=== PATIENT | male | born 1935 | race Caucasian/White ===

== ENCOUNTER 2021-11-15 11:14 | Emergency (ER) | payer MEDICARE, OTHER, SELFPAY ==
[2021-11-15] VITALS (13 sets, daily range): BP systolic 124–211; BP diastolic 60–89; PULSE 34–42; RESP 14–18; TEMP 37.2; O2SAT 93–99; BMI 23.2
--- NOTE | 2021-11-15 12:58 | ED_ITS ---
HPI - Dizziness General Chief Complaint: Dizziness/Vertigo Stated Complaint: Lightheaded want bp checked Time Seen by Provider: 11/15/21 11:15 History of Present Illness HPI Narrative: This 85-year-old male comes in reporting dizziness over the past couple weeks. He states that he is not feeling right. He clarifies dizziness to mean lightheadedness episodes. He denies having any vertigo. There is some off balance feeling with episodes of lightheadedness as would be expected. Does not report any chest pain. He arrives with elevated blood pressure which is also part of his concern. He was thinking that this is causing his lightheadedness. It is also noted that his heart rate is 40 beats per minute. He states that he noted that his heart rate was at 35 last evening. He is not on any beta-mouna or other rate-controlling medication. He states that there was some discussion in the past about the possibility of a pacemaker but this was decided against by his caregivers. He states that his heart rate was in the 60s around that time but now for the past few weeks apparently he has much slower heart rate. Related Data Home Medications Medication Instructions Recorded Confirmed amlodipine 5 mg tablet mg 11/15/21 furosemide 40 mg tablet mg 11/15/21 metoprolol tartrate 25 mg tablet mg 11/15/21 tamsulosin 0.4 mg capsule mg PO 11/15/21 Allergies Allergy/AdvReac Type Severity Reaction Status Date / Time No Known Drug Allergies Allergy Verified 11/15/21 12:05 Review of Systems Status of ROS: Reports: 10 or more systems reviewed and unremarkable except as noted in History and below Narrative: Constitutional: No fevers, no weight gain or loss. Generalized fatigue. Eyes: No discharge. No vision changes. HENT: No congestion, no sore throat, no ear pain. Cardiovascular: No chest pain, no palpitations. Respiratory: No shortness of breath, no wheezes, no cough. Gastrointestinal: No abdominal pain, no vomiting, no diarrhea. Genitourinary: No dysuria, no hematuria. Musculoskeletal: Normal range of motion. Skin: No rashes, no pruritis. Neurological: No weakness, sensory change, speech change. Lightheadedness episodes. Endo/Heme/Allergies: No bruising or bleeding. No polydipsia. Pysch: no suicidality, no anxiety, no insomnia. All other systems reviewed and are negative. PFSH PFSH Social History Smoking Status: Former smoker How often do you have a drink containing alcohol: never AUDIT-C Alcohol total score: 0 Non-prescribed substance use: denies use Exam Narrative: Exam Narrative: Constitutional: Well-developed, well-nourished, no acute distress. HEENT: Normocephalic, atraumatic. Neck: Normal range of motion. Nontender. Supple. Heart: Regular. No murmurs. Bradycardia. Intact distal pulses. Lungs: Clear to auscultation. No chest discomfort. No wheezes, rhonchi, or rales. Abdomen: Normal bowel sounds. Nontender. No rebound tenderness. Genitalia: Deferred. Back: No midline tenderness. Normal range of motion. Extremities: Normal range of motion. No injury. Skin: Intact. No rash. Warm. No erythema or pallor. Neurologic: No altered sensation. No weakness. Alert and oriented. Psychiatric: No suicidality. No anxiety or depression. No insomnia. Nursing notes and vitals signs are reviewed. Const: Vital Signs, click to edit/add: Vital Signs - 24 hr 11/15/21 11:49 11/15/21 12:20 11/15/21 12:30 Temperature 98.9 F Pulse Rate [Right Pulse Oximeter] 42 L 41 L 37 L Respiratory Rate 14 16 16 Blood Pressure [Ri ght Upper Arm] 196/65 H 196/64 H 182/63 H Pulse Oximetry 97 96 96 Oxygen Delivery Me thod Room Air Room Air Room Air 11/15/21 14:00 11/15/21 16:49 Temperature Pulse Rate [Right Pulse Oximeter] 37 L 42 L Respiratory Rate 16 18 Blood Pressure [Ri ght Upper Arm] 187/65 H 124/74 Pulse Oximetry 93 98 Oxygen Delivery Me thod Room Air Room Air Course Vital Signs Vital signs: Initial Vital Signs Temperature 98.9 F 11/15/21 11:49 Temperature Source Temporal Artery Scan 11/15/21 11:49 Pulse Rate 42 L 11/15/21 11:49 Respiratory Rate 14 11/15/21 11:49 Blood Pressure 196/65 H 11/15/21 11:49 Blood Pressure Mean 108 11/15/21 11:49 Blood Pressure Position Sitting 11/15/21 11:49 Pulse Oximetry 97 11/15/21 11:49 Oxygen Delivery Method 11/15/21 11:49 Vital Signs Temperature 98.9 F 11/15/21 11:49 Pulse Rate 42 L 11/15/21 11:49 Respiratory Rate 14 11/15/21 11:49 Blood Pressure 196/65 H 11/15/21 11:49 Pulse Oximetry 97 11/15/21 11:49 Oxygen Delivery Method 11/15/21 11:49 Temperature 98.9 F 11/15/21 11:49 Pulse Rate 42 L 11/15/21 16:49 Respiratory Rate 18 11/15/21 16:49 Blood Pressure 124/74 11/15/21 16:49 Pulse Oximetry 98 11/15/21 16:49 Oxygen Delivery Method 11/15/21 16:49 MDM - Dizziness MDM Narrative Medical decision making narrative: This 85-year-old male comes in reporting fatigue and lightheadedness over the last couple weeks. He arrives with a heart rate at around 40 beats per minute with sufficient and even elevated blood pressure. He states that he noticed his heart rate was in the range of 35 beats per minute last evening. EKG shows sinus rhythm with second-degree AV block in a 2-1 AV conduction ratio. While at rest the patient is feeling okay and is stable. He does see a quality assurance intern and has an appointment in a couple weeks. He was uncertain as to whether he was taking a beta-mouna. His medication list that he carried on him showed no evidence of beta blockade. However his record here shows that he was prescribed metoprolol tartrate 25 mg b.i.d. on September 21, almost 2 months ago. This may have been stopped by his quality assurance intern. In any event it is unclear whether he is taking a beta-mouna. Lab results returned with an elevated B type natriuretic peptide at around 9100. His troponin is in normal range. Other lab results also are reassuring. I did speak with the quality assurance intern on-call, Dr. Billy, who works with the quality assurance intern that this patient's ease. He recommended admission but there were no beds available for transfer to [facility]. I did speak with the hospitalist here, Dr. Bobby, agreed to take him in to further assessed for any advancing heart block. It was noted that the patient did get up to ambulate to the bathroom and his heart rate increased to 48 at the time. This exertional increase is somewhat reassuring despite the need for a pacer at some point. Lab Data Labs: Lab Results 11/15/21 11/15/21 11/15/21 Range/Units 13:10 13:10 13:10 WBC 9.32 (4.50-11.00) K/uL RBC 4.18 L (4.30-5.90) m/uL Hgb 13.0 L (13.5-17.5) gm/dL Hct 39.9 (37.0-53.0) % MCV 96 (80-100) fL MCH 31 (26-34) pg MCHC 33 (32-36) gm/dL RDW Coeff of [place] 14.6 (11.5-15.5) % Plt Count 183 (140-440) K/uL Neut % (Auto) 79.6 H (42.0-72.0) % Lymph % (Auto) 11.6 L (20-44) % [place] % (Auto) 6.5 (0.0-11.0) % Eos % (Auto) 1.9 (0.0-7.0) % Baso % (Auto) 0.3 (0.0-3.0) % Neut # (Auto) 7.40 H (1.7-7.0) K/uL Lymph # (Auto) 1.10 (0.90-2.90) K/uL [place] # (Auto) 0.60 (0.00-0.90) K/UL Eos # (Auto) 0.18 (0.00-0.50) K/uL Baso # (Auto) 0.03 (0.00-0.30) K/uL Abs Immat Gran (auto) 0.01 (0.00-0.30) K/uL INR 1.02 (0.91-1.10) Sodium 143 (135-149) mmol/L Potassium 4.6 (3.6-5.1) mmol/L Chloride 111 (96-114) mmol/L Carbon Dioxide 21 (20-32) mmol/L BUN 41 H (7-30) mg/dL Creatinine 1.7 H (0.5-1.5) mg/dL Estimated Creat Clear 26.12 Estimated GFR 39 ml/min Glucose 106 (60-115) mg/dL Calcium 8.8 (8.4-10.6) mg/dL Magnesium 2.4 (1.5-2.6) mg/dL Troponin I 0.04 (0.01-0.04) ng/mL NT-Pro-B Natriuret Pep 9100 H (0-450) PG/mL TSH (0.270-4.20) uIU/mL SARS-CoV-2 (PCR) (Negative) 11/15/21 11/15/21 Range/Units 13:10 13:42 WBC (4.50-11.00) K/uL RBC (4.30-5.90) m/uL Hgb (13.5-17.5) gm/dL Hct (37.0-53.0) % MCV (80-100) fL MCH (26-34) pg MCHC (32-36) gm/dL RDW Coeff of [place] (11.5-15.5) % Plt Count (140-440) K/uL Neut % (Auto) (42.0-72.0) % Lymph % (Auto) (20-44) % [place] % (Auto) (0.0-11.0) % Eos % (Auto) (0.0-7.0) % Baso % (Auto) (0.0-3.0) % Neut # (Auto) (1.7-7.0) K/uL Lymph # (Auto) (0.90-2.90) K/uL [place] # (Auto) (0.00-0.90) K/UL Eos # (Auto) (0.00-0.50) K/uL Baso # (Auto) (0.00-0.30) K/uL Abs Immat Gran (auto) (0.00-0.30) K/uL INR (0.91-1.10) Sodium (135-149) mmol/L Potassium (3.6-5.1) mmol/L Chloride (96-114) mmol/L Carbon Dioxide (20-32) mmol/L BUN (7-30) mg/dL Creatinine (0.5-1.5) mg/dL Estimated Creat Clear Estimated GFR ml/min Glucose (60-115) mg/dL Calcium (8.4-10.6) mg/dL Magnesium (1.5-2.6) mg/dL Troponin I (0.01-0.04) ng/mL NT-Pro-B Natriuret Pep (0-450) PG/mL TSH 2.260 (0.270-4.20) uIU/mL SARS-CoV-2 (PCR) Negative SARS-CoV-2 (Negative) ECG Data Attestation: I personally reviewed and interpreted this ECG as follows: Interpretation: Sinus rhythm with second-degree AV block and a 2-1 conduction. Rate is 38 beats per minute. There are no specific ST or T-wave abnormalities. Discharge Plan Discharge Clinical Impression: AV heart block Patient Disposition: Admitted As Inpatient Condition: Unchanged Prescriptions: No Action furosemide 40 mg tablet amlodipine 5 mg tablet tamsulosin 0.4 mg capsule PO metoprolol tartrate 25 mg tablet Follow Up/Referrals: Louis Smith MD [Primary Care Provider] -
[2021-11-15 13:19] LABS: Basophils Absolute Auto 0.03 K/uL (0.00-0.30); Basophils Percent Auto 0.3 % (0.0-3.0); Eosinophils Absolute Auto 0.18 K/uL (0.00-0.50); Eosinophils Percent Auto 1.9 % (0.0-7.0); Hematocrit 39.9 % (37.0-53.0); Immature Granulocytes Abs Auto 0.01 K/uL (0.00-0.30); Lymphocytes Percent Auto 11.6 % (20-44); Mean Corpuscular HGB Conc 33 gm/dL (32-36); Mean Corpuscular Hemoglobin 31 pg (26-34); Mean Corpuscular Volume 96 fL (80-100); Monocytes Percent Auto 6.5 % (0.0-11.0); Neutrophils Percent Auto 79.6 % (42.0-72.0); Platelet Count* 183 K/uL (140-440); RDW Coefficient of Variation % 14.6 % (11.5-15.5); Red Blood Count 4.18 m/uL (4.30-5.90); White Blood Count* 9.32 K/uL (4.50-11.00)
--- NOTE | 2021-11-15 13:21 | ED.NURSE ---
ed trop instead of ed poc trop ok per dr green, lab notified and will change order and run
[2021-11-15 13:22] LABS: Slide Review Reflex No
[2021-11-15 13:44] LABS: Chloride* 111 mmol/L (96-114); Potassium* 4.6 mmol/L (3.6-5.1); Sodium* 143 mmol/L (135-149)
--- NOTE | 2021-11-15 13:44 | ED.NURSE ---
pt alert, denies pain, HR alarms below 35, Dr. Pollard updated.
[2021-11-15 13:46] LABS: Creatinine* 1.7 mg/dL (0.5-1.5); Est. Creatinine Clearance* 26.12; Estimated Glomerular Filt Rate 39 ml/min
[2021-11-15 13:47] LABS: Blood Urea Nitrogen* 41 mg/dL (7-30); Calcium* 8.8 mg/dL (8.4-10.6); Carbon Dioxide* 21 mmol/L (20-32); Glucose* 106 mg/dL (60-115); Magnesium* 2.4 mg/dL (1.5-2.6)
[2021-11-15 13:54] LABS: INR 1.02 (0.91-1.10); Prothrombin Time 13.8 Seconds
[2021-11-15 13:56] LABS: NT Pro B Type NatriureticPept* 9100 PG/mL (0-450)
[2021-11-15 14:00] LABS: Troponin I* 0.04 ng/mL (0.01-0.04)
[2021-11-15 15:00] LABS: SARS PCR* Negative SARS-CoV-2 (Negative)
--- NOTE | 2021-11-15 16:13 | ED.NURSE ---
Patient had a drop in heart rate to 30. notified. Dr. Pollard has spoken to [facility]. [place] stated that there were no beds available at this time. Will continue to work on disposition.
--- NOTE | 2021-11-15 21:00 | ED.NURSE ---
report to [facility], pt transported out via stretcher to [place]. awaiting N2N report to [place].
--- NOTE | 2021-11-15 21:32 | ED.NURSE ---
report to RN at [place].
--- NOTE | 2021-11-16 06:08 | ED.NURSE ---
Pt's daughter called and asked for update. 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 Updated daughter that pt transferred to [place] last evening. Offered to look up phone number for her, but she refused. She stated she would call them.
== END 2021-11-15 21:33 | disposition admitted as inpatient to this hospital (09) ==
PROVIDERS: Emergency Provider Emergency Medicine Emergency Medical Services; PCP Family Medicine
DX: I44.30 Unspecified atrioventricular block (principal)
CPT/HCPCS: 36415; 80048; 83735; 83880; 84443; 84484; 85025; 85610; 87635; 93005; 99285; 99291

== ENCOUNTER 2021-11-15 20:53 | Outpatient (CLI) | payer MEDICARE, OTHER, SELFPAY | END 2021-11-15 20:54 | disposition home or self-care (01) | LOC: AMB 11-25 16:35 | PROVIDERS: PCP Family Medicine; Visit Provider Emergency Medicine Emergency Medical Services | DX: R42 Dizziness and giddiness (principal); I10 Essential (primary) hypertension | CPT/HCPCS: A0425; A0426 ==

== ENCOUNTER 2022-06-29 07:55 | Outpatient (CLI) | payer MEDICARE, OTHER, SELFPAY ==
--- NOTE | 2022-06-29 08:15 | CRLHL7_ITS ---
For Patients: As a result of the Century Cures Act, medical imaging exams and procedure reports are released immediately into your electronic medical record. You may view this report before your referring provider. If you have questions, please contact your health care provider. INDICATION: Belching. Gastrointestinal reflux disease. TECHNIQUE: Single contrast upper GI. FINDINGS: The manager database administration image demonstrates a right-sided pacemaker with its lead tips in the right atrium and right ventricle. Sternotomy. Cardiac bypass. Transcatheter aortic valve replacement. Surgical clips right upper quadrant. Essentially normal esophagus without stricture, mass, or obstruction. No significant presbyesophagus. Few tertiary contractions toward the end of the examination. No hiatal hernia. Reflux could not be elicited in the upright or recumbent/decubitus positions. No sliding type esophageal hiatal hernia was identified. The stomach and duodenum are grossly unremarkable. These findings were discussed in detail with the patient and the patient`s daughter who was present for the examination. 3 minutes 22 seconds fluoroscopy time utilized. IMPRESSION: Essentially normal upper GI. Dictated by Tristan Erickson MD @ 06/29/2022 11:13:19 AM (Electronically Signed)
== END 2022-06-29 07:56 | disposition home or self-care (01) ==
PROVIDERS: PCP Family Medicine; Visit Provider Internal Medicine Gastroenterology
DX: K21.9 Gastro-esophageal reflux disease without esophagitis (principal)
CPT/HCPCS: 74240

== ENCOUNTER 2023-08-31 13:30 | Outpatient (CLI) | payer MEDICARE, OTHER, SELFPAY | END 2023-08-31 13:31 | disposition home or self-care (01) | LOC: AMB 09-04 00:52 | PROVIDERS: PCP Family Medicine; Visit Provider Family Medicine | DX: R06.09 Other forms of dyspnea (principal) | CPT/HCPCS: A0425; A0427 ==

== ENCOUNTER 2023-08-31 14:15 | Emergency (ER) | payer MEDICARE, OTHER, SELFPAY ==
[2023-08-31] VITALS (13 sets, daily range): BP systolic 155–171; BP diastolic 59–128; PULSE 59–75; RESP 12–28; TEMP 35.8; O2SAT 90–97
[2023-08-31] MEDS: ALBUTEROL SULFATE 2.5 MG/3 ML VIAL.NEB NEB (15:04)
[2023-08-31] MEDS: FUROSEMIDE 10 MG/ML inj 80 MG IVP ×2 (15:04→18:01)
[2023-08-31] MEDS: NITROGLYCERIN 0.4 MG TAB.SUBL SUBLINGUAL ×2 (15:04→18:33)
[2023-08-31 15:07] LABS: ABG PCO2 45 mmHG (35-45); Base Excess ABG -1.8 mmol/L (-3.0-3.0); Carboxyhemoglobin* 1.9 % (0.0-5.0); HCO3 ABG 24 mmol/L (21-28); Lactate* 0.6 mmol/L (0.5-1.9); Oxygen Saturation ABG 94 % (92-100); PO2 ABG 68.3 mmHG (80-105); TCO2 ABG 22 mmol/l (21-30); pH ABG 7.34 (7.35-7.45)
--- NOTE | 2023-08-31 15:13 | CRLHL7_ITS ---
For Patients: As a result of the Century Cures Act, medical imaging exams and procedure reports are released immediately into your electronic medical record. You may view this report before your referring provider. If you have questions, please contact your health care provider. INDICATION: Shortness of breath. COMPARISON: None. TECHNIQUE: Portable AP chest. FINDINGS: Mild cardiomegaly. Small bilateral pleural effusions. Evidence of pulmonary congestion. IMPRESSION: CHF with bilateral pleural effusion. Dictated by Eduardo Valenzuela MD @ 08/31/2023 4:07:41 PM (Electronically Signed)
[2023-08-31 15:21] LABS: Basophils Percent Auto 0.3 % (0.0-3.0); Hematocrit 39.8 % (37.0-53.0); Hemoglobin* 12.9 gm/dL (13.5-17.5); Immature Granulocytes Pct Auto 1.4 %; Lymphocytes Percent Auto 3.4 % (20-44); Mean Corpuscular HGB Conc 32 gm/dL (32-36); Mean Corpuscular Hemoglobin 31 pg (26-34); Mean Corpuscular Volume 96 fL (80-100); Monocytes Percent Auto 5.6 % (0.0-11.0); Neutrophils Percent Auto 87.3 % (42.0-72.0); Platelet Count* 209 K/uL (140-440); RDW Coefficient of Variation % 13.2 % (11.5-15.5); Red Blood Count 4.14 m/uL (4.30-5.90); White Blood Count* 15.34 K/uL (4.50-11.00)
[2023-08-31 15:25] LABS: Slide Review Reflex No
[2023-08-31 15:32] LABS: Chloride* 105 mmol/L (96-114)
[2023-08-31 15:33] LABS: Potassium* 4.6 mmol/L (3.6-5.1); Sodium* 138 mmol/L (135-149)
[2023-08-31 15:35] LABS: Creatinine* 1.6 mg/dL (0.5-1.5); Estimated Glomerular Filt Rate 41 ml/min
[2023-08-31 15:36] LABS: Anion Gap 8 mEq/L (7-15); Blood Urea Nitrogen* 47 mg/dL (7-30); Carbon Dioxide* 25 mmol/L (20-32); Glucose* 156 mg/dL (60-115)
[2023-08-31 15:37] LABS: Calcium* 9.2 mg/dL (8.4-10.6)
[2023-08-31 15:39] LABS: C Reactive Protein* 0.7 mg/dL (0.5-1.0)
[2023-08-31 15:45] LABS: NT Pro B Type NatriureticPept* 18700 pg/mL
[2023-08-31 15:47] LABS: Troponin, Point-of-Care* 0.03 ng/ml (0.01-0.04)
[2023-08-31 15:48] LABS: INR 1.01 (0.91-1.10); Prothrombin Time 13.9 Seconds
[2023-08-31 15:49] LABS: D Dimer Quantitative* 1.49 ug/ml (0.00-0.50); Partial Thromboplastin Time* 30 Seconds (23-33)
[2023-08-31 16:26] LABS: Appearance Urine Clear (Clear); Bilirubin Urine Negative (Negative); Blood Urine Negative (Negative); Color Urine Yellow (Yellow); Glucose Urine Negative (Negative); Ketones Urine Negative (Negative); Leukocyte Esterase Urine Negative (Negative); Nitrite Urine Negative (Negative); Protein Urine 2+ (Negative); Specific Gravity Urine 1.015 (1.000-1.030); Urobilinogen Urine 0.2 (0.2-1.0); pH Urine 5.5 (5.0-8.5)
[2023-08-31 16:34] LABS: RBC Urine 0-2 (0-2); Squamous Epithelial Cell Urine Few (None-Few); WBC Urine 0-2 (0-5)
[2023-08-31 16:54] LABS: PCR FLU A Negative PCR FLU A (Negative); PCR FLU B Negative PCR FLU B (Negative); PCR RSV Negative PCR RSV (Negative); SARS PCR* Negative SARS-CoV-2 (Negative)
--- NOTE | 2023-08-31 16:57 | ED_ITS ---
HPI - SOB/Dyspnea General Date Seen: 08/31/23 Chief Complaint: Shortness of Breath/Dyspnea Stated Complaint: CHF Source: patient, family, EMS, RN notes reviewed and old records reviewed Mode of arrival: EMS Limitations: physical limitation History of Present Illness HPI Narrative: Patient is 87-year-old gentleman who presents here with acute respiratory distress and on BiPAP. He was found at home with a saturation of 75%, struggling to breathe, tripoding. This came on suddenly, approximately 2 hours ago. He was placed on oxygen they were unable to get him above 88 85%. BiPAP was placed. He tolerated this very well, was able to converse with the paramedics and they brought him here for evaluation. He lives with his daughter, he does have a heart history of a previous aortic valve, coronary bypass grafting and also pacemaker placement 2 years ago. Cardiology is followed through [facility]. I find him now on the BiPAP, able to speak to me in 1 or 2 word sentences. Oxygen demands are low. Current by tap settings are noted by my respiratory provider. Patient's daughter who he lives with his now here, she tells me he was complaining of ear pain yesterday, then became acutely short of breath today when she called him he is full code per discussion with him here today. MD elicited complaint: shortness of breath Pertinent past history: congestive heart failure Onset (ago): hour(s) Context: recent illness Timing: progressively worsening Severity: severe Exacerbating factors: lying flat and deep breaths Relieving factors: upright position Known history of: congestive heart failure Treatment prior to arrival: oxygen and NIPPV Related Data Home oxygen amount: none Home Medications ?Medication ?Instructions ?Recorded ?Confirmed amlodipine 5 mg tablet 7.5 mg PO DAILY 11/15/21 08/31/23 aspirin 81 mg tablet,delayed 81 mg PO DAILY 11/15/21 08/31/23 release atorvastatin 40 mg tablet 40 mg PO HS 11/15/21 08/31/23 calcium carbonate PO 11/15/21 06/10/22 cyanocobalamin (vitamin B-12) PO 11/15/21 06/10/22 ferrous sulfate 142 mg (45 mg 142 mg PO DAILY 11/15/21 08/31/23 iron) tablet,extended release (Slow Fe) furosemide 40 mg tablet 40 mg PO BID 11/15/21 08/31/23 multivitamin-ferrous 1 tab PO DAILY 11/15/21 08/31/23 fumarate-folic acid 18 mg-400 mcg tablet (Complete Multivitamin-Multimineral) omega-3 fatty acids-fish oil PO 11/15/21 06/10/22 omeprazole 20 mg capsule,delayed 20 mg PO DAILY 11/15/21 08/31/23 release tamsulosin 0.4 mg capsule 0.4 mg PO HS 11/15/21 08/31/23 carvedilol 6.25 mg tablet mg PO 08/31/23 coenzyme Q10 08/31/23 diclofenac sodium 1 % topical gel 2 g topical QID 08/31/23 08/31/23 isosorbide mononitrate 120 mg 120 mg PO DAILY 08/31/23 08/31/23 tablet,extended release 24 hr isosorbide mononitrate 30 mg 30 mg PO DAILY 08/31/23 08/31/23 tablet,extended release 24 hr isosorbide mononitrate 60 mg 60 mg PO DAILY 08/31/23 08/31/23 tablet,extended release 24 hr nitroglycerin 0.4 mg sublingual mg sublingual 08/31/23 tablet omeprazole 40 mg capsule,delayed 40 mg PO DAILY 08/31/23 08/31/23 release Allergies Allergy/AdvReac Type Severity Reaction Status Date / Time No Known Drug Allergies Allergy Verified 06/10/22 11:02 Review of Systems Status of ROS: Reports: 10 or more systems reviewed and unremarkable except as noted in History and below [facility] Social History Smoking Status: Former smoker Do you use any of these nicotine containing products: None Second hand tobacco smoke exposure: No How often do you have a drink containing alcohol: never AUDIT-C Alcohol total score: 0 Non-prescribed substance use: denies use Exam Narrative: Exam Narrative: On examination stabilization room 1, pupils equal round react to light his TMs bilaterally are normal his oropharynx is normal his JVP is elevated, but he is on the BiPAP. Chest shows poor air entry bilaterally with crackles, he is not moving a lot air, click as aortic valve is notable. But otherwise normal heart sounds. Abdomen is soft and slightly obese, 1 to 2+ pitting edema noted bila terally his lower extremities. Moving all extremities independently and well. Const: Vital Signs, click to edit/add: Vital Signs - 24 hr 08/31/23 14:21 08/31/23 14:30 08/31/23 14:39 Temperature 96.5 F L Pulse Rate Pulse Rate [Pulse Oximeter] 70 67 Respiratory Rate 28 H 22 Blood Pressure Blood Pressure [Ri ght Upper Arm] 155/75 H 159/69 H Pulse Oximetry 92 92 92 Oxygen Delivery Me thod BiPAP BiPAP Oxygen Flow Rate Fraction of Inspir ed Oxygen 35 08/31/23 15:00 08/31/23 15:30 08/31/23 15:36 Temperature Pulse Rate Pulse Rate [Pulse Oximeter] 62 60 Respiratory Rate 22 16 Blood Pressure Blood Pressure [Ri ght Upper Arm] 161/128 H 158/82 H Pulse Oximetry 94 90 Oxygen Delivery Me thod BiPAP BiPAP Oxygen Flow Rate Fraction of Inspir ed Oxygen 35 35 35 08/31/23 15:36 08/31/23 16:30 08/31/23 16:45 Temperature Pulse Rate 72 Pulse Rate [Pulse Oximeter] 59 L Respiratory Rate 12 Blood Pressure Blood Pressure [Ri ght Upper Arm] 167/59 H Pulse Oximetry 97 92 Oxygen Delivery Me thod BiPAP BiPAP Nasal Cannula Oxygen Flow Rate 2 Fraction of Inspir ed Oxygen 30 35 08/31/23 17:02 08/31/23 17:32 Temperature Pulse Rate 71 73 Pulse Rate [Pulse Oximeter] Respiratory Rate 18 20 Blood Pressure 171/84 H 160/74 H Blood Pressure [Ri ght Upper Arm] Pulse Oximetry 94 92 Oxygen Delivery Me thod Nasal Cannula Nasal Cannula Oxygen Flow Rate 2 2 Fraction of Inspir ed Oxygen Course Course ED Course: 18:15 I spoke to from [facility], he strongly suggested transfer to half-way, we were priority and they called back and said they had a bed. His troponin is now gone up .28, this is more suggestive of an NSTEMI. We discussed as he is a complicated cardiac patient that he would be suited at [facility]. Reevaluation(s) Time of Reevaluation #1: 18:28 Reevaluation #1: The patient was feeling more short of breath, weight taken him off his BiPAP, he was on 2 L of oxygen doing well at 93 95%. He had some diuresis. I was strongly considering starting a CT scan, rule out a pulmonary embolism, when he felt more short of breath, I think a reasonable thing would be to do some BiPAP now, give him another bolus of Lasix. Give him a nitroglycerin. He is heparinized at this point, after my conversation with [facility]. They have accepted him is transport. I notified the family. Vital Signs Vital signs: Initial Vital Signs Temperature 96.5 F L 08/31/23 14:21 Temperature Source Temporal Artery Scan 08/31/23 14:21 Pulse Rate 70 08/31/23 14:21 Respiratory Rate 28 H 08/31/23 14:21 Blood Pressure 155/75 H 08/31/23 14:21 Blood Pressure Mean 101 08/31/23 14:21 Blood Pressure Position Supine 08/31/23 14:21 Pulse Oximetry 92 08/31/23 14:21 Oxygen Delivery Method BiPAP 08/31/23 14:21 Vital Signs Temperature 96.5 F L 08/31/23 14:21 Pulse Rate 70 08/31/23 14:21 Respiratory Rate 28 H 08/31/23 14:21 Blood Pressure 155/75 H 08/31/23 14:21 Pulse Oximetry 92 08/31/23 14:21 Oxygen Delivery Method BiPAP 08/31/23 14:21 Temperature 96.5 F L 08/31/23 14:21 Pulse Rate 73 08/31/23 17:32 Respiratory Rate 20 08/31/23 17:32 Blood Pressure 160/74 H 08/31/23 17:32 Pulse Oximetry 92 08/31/23 17:32 Oxygen Delivery Method Nasal Cannula 08/31/23 17:32 Oxygen Flow Rate 2 08/31/23 17:32 Fraction of Inspired Oxygen 35 08/31/23 16:30 Medications Administered Medications: Generic Name Dose Route Start Last Admin Trade Name Freq PRN Reason Stop Dose Admin Heparin Sodium/Dextrose 25,000 unit in 500 mls @ 0 mls/hr 08/31/23 17:15 08/31/23 17:17 Heparin IV 750 unit/hr .Q0M LARS 15 mls/hr Administration Protocol Per Protocol Discontinued Medications Generic Name Dose Route Start Last Admin Trade Name Freq PRN Reason Stop Dose Admin Albuterol 2.5 mg 08/31/23 14:41 08/31/23 15:04 Albuterol Sulfate 2.5 Mg/3 Ml Vial.Neb NEB 08/31/23 14:42 2.5 mg ONCE ONE Administration Aspirin 162 mg 08/31/23 17:33 08/31/23 17:16 Aspirin 81 Mg Tab.Chew PO 08/31/23 17:34 162 mg ONCE ONE Administration Furosemide 80 mg 08/31/23 14:39 08/31/23 15:04 Furosemide 10 Mg/Ml Inj IVP 08/31/23 14:40 80 mg ONCE ONE Administration Furosemide 80 mg 08/31/23 17:49 08/31/23 18:01 Furosemide 10 Mg/Ml Inj IVP 08/31/23 17:50 80 mg ONCE ONE Administration Heparin Sodium (Porcine) 3,800 unit 08/31/23 17:05 08/31/23 17:16 Heparin 5,000 Unit/0.5 Ml Inj 60 unit/kg (3800 unit) 08/31/23 17:06 3,800 unit IVP Administration ONCE ONE Nitroglycerin 0.4 mg 08/31/23 14:53 08/31/23 15:04 Nitroglycerin 0.4 Mg Tab.Subl SUBLINGUAL 08/31/23 14:54 0.4 mg ONCE ONE Administration MDM - SOB/Dyspnea MDM Narrative Medical decision making narrative: Life-threatening differential diagnosis includes occluded COPD exacerbation, pulmonary edema, acute coronary syndromes, pulmonary embolism, pneumonia, and pneumothorax. Other differential diagnosis considerations include asthma, bronchitis as well as other etiologies. His x-ray showed that he pulmonary edema verses severe CHF. His troponin initially was 0.03 arose to .11, D-dimer was elevated also. He received, 80 mg IV of Lasix, along with albuterol x1, aspirin 162 mg, and heparinize. EKG shows the paced rhythm. Differential Diagnosis Differential diagnosis: Likely acute exacerbation of chronic obstructive airways disease, congestive heart failure, community acquired pneumonia, asthma with exacerbation and pulmonary embolism Medical Records Attestation: I reviewed the patient's medical records. Lab Data Attestation: I reviewed the patient's lab results. Labs: Lab Results 08/31/23 08/31/23 08/31/23 Range/Units 14:20 14:53 15:05 WBC 15.34 H (4.50-11.00) K/uL RBC 4.14 L (4.30-5.90) m/uL Hgb 12.9 L (13.5-17.5) gm/dL Hct 39.8 (37.0-53.0) % MCV 96 (80-100) fL MCH 31 (26-34) pg MCHC 32 (32-36) gm/dL RDW Coeff of [place] 13.2 (11.5-15.5) % Plt Count 209 (140-440) K/uL Neut % (Auto) 87.3 H (42.0-72.0) % Lymph % (Auto) 3.4 L (20-44) % [place] % (Auto) 5.6 (0.0-11.0) % Eos % (Auto) 2.0 (0.0-7.0) % Baso % (Auto) 0.3 (0.0-3.0) % Neut # (Auto) 13.40 H (1.7-7.0) K/uL Lymph # (Auto) 0.50 L (0.90-2.90) K/uL [place] # (Auto) 0.90 (0.00-0.90) K/UL Eos # (Auto) 0.30 (0.00-0.50) K/uL Baso # (Auto) 0.00 (0.00-0.30) K/uL Abs Immat Gran (auto) 0.20 (0.00-0.30) K/uL Imm/Tot Granulo (auto) 1.4 % INR 1.01 (0.91-1.10) APTT 30 (23-33) Seconds D-Dimer Quant (PE/DVT) 1.49 H (0.00-0.50) ug/ml ABG pH 7.34 L (7.35-7.45) ABG pCO2 45 (35-45) mmHG ABG pO2 68.3 L (80-105) mmHG ABG HCO3 24 (21-28) mmol/L ABG Total CO2 22 (21-30) mmol/l ABG O2 Saturation 94 (92-100) % ABG Base Excess -1.8 (-3.0-3.0) mmol/L Carboxyhemoglobin 1.9 (0.0-5.0) % Sodium 138 (135-149) mmol/L Potassium 4.6 (3.6-5.1) mmol/L Chloride 105 (96-114) mmol/L Carbon Dioxide 25 (20-32) mmol/L Anion Gap 8 (7-15) mEq/L BUN 47 H (7-30) mg/dL Creatinine 1.6 H (0.5-1.5) mg/dL Estimated GFR 41 ml/min Glucose 156 H (60-115) mg/dL Lactate 0.6 (0.5-1.9) mmol/L Calcium 9.2 (8.4-10.6) mg/dL Troponin I (0.01-0.04) ng/mL C-Reactive Protein 0.7 (0.5-1.0) mg/dL NT-Pro-B Natriuret Pep 87643 pg/mL Urine Color Yellow (Yellow) Urine Appearance Clear (Clear) Urine pH 5.5 (5.0-8.5) Ur Specific [place] 1.015 (1.000-1.030) Urine Protein 2+ A (Negative) Urine Glucose (UA) Negative (Negative) Urine Ketones Negative (Negative) Urine Blood Negative (Negative) Urine Nitrite Negative (Negative) Urine Bilirubin Negative (Negative) Urine Urobilinogen 0.2 (0.2-1.0) Ur Leukocyte Esterase Negative (Negative) Urine RBC 0-2 (0-2) Urine WBC 0-2 (0-5) Ur Squamous Epith Cells Few (None-Few) Urine Bacteria None (None) SARS-CoV-2 (PCR) (Negative) Influenza Type A (PCR) (Negative) Influenza Type B (PCR) (Negative) RSV (PCR) (Negative) POC Troponin I 0.03 (0.01-0.04) ng/ml 08/31/23 08/31/23 08/31/23 Range/Units 15:40 15:50 17:54 WBC (4.50-11.00) K/uL RBC (4.30-5.90) m/uL Hgb (13.5-17.5) gm/dL Hct (37.0-53.0) % MCV (80-100) fL MCH (26-34) pg MCHC (32-36) gm/dL RDW Coeff of [place] (11.5-15.5) % Plt Count (140-440) K/uL Neut % (Auto) (42.0-72.0) % Lymph % (Auto) (20-44) % [place] % (Auto) (0.0-11.0) % Eos % (Auto) (0.0-7.0) % Baso % (Auto) (0.0-3.0) % Neut # (Auto) (1.7-7.0) K/uL Lymph # (Auto) (0.90-2.90) K/uL [place] # (Auto) (0.00-0.90) K/UL Eos # (Auto) (0.00-0.50) K/uL Baso # (Auto) (0.00-0.30) K/uL Abs Immat Gran (auto) (0.00-0.30) K/uL Imm/Tot Granulo (auto) % INR (0.91-1.10) APTT (23-33) Seconds D-Dimer Quant (PE/DVT) (0.00-0.50) ug/ml ABG pH (7.35-7.45) ABG pCO2 (35-45) mmHG ABG pO2 (80-105) mmHG ABG HCO3 (21-28) mmol/L ABG Total CO2 (21-30) mmol/l ABG O2 Saturation (92-100) % ABG Base Excess (-3.0-3.0) mmol/L Carboxyhemoglobin (0.0-5.0) % Sodium (135-149) mmol/L Potassium (3.6-5.1) mmol/L Chloride (96-114) mmol/L Carbon Dioxide (20-32) mmol/L Anion Gap (7-15) mEq/L BUN (7-30) mg/dL Creatinine (0.5-1.5) mg/dL Estimated GFR ml/min Glucose (60-115) mg/dL Lactate (0.5-1.9) mmol/L Calcium (8.4-10.6) mg/dL Troponin I 0.11 H* (0.01-0.04) ng/mL C-Reactive Protein (0.5-1.0) mg/dL NT-Pro-B Natriuret Pep pg/mL Urine Color (Yellow) Urine Appearance (Clear) Urine pH (5.0-8.5) Ur Specific [place] (1.000-1.030) Urine Protein (Negative) Urine Glucose (UA) (Negative) Urine Ketones (Negative) Urine Blood (Negative) Urine Nitrite (Negative) Urine Bilirubin (Negative) Urine Urobilinogen (0.2-1.0) Ur Leukocyte Esterase (Negative) Urine RBC (0-2) Urine WBC (0-5) Ur Squamous Epith Cells (None-Few) Urine Bacteria (None) SARS-CoV-2 (PCR) Negative SARS-CoV-2 (Negative) Influenza Type A (PCR) Negative PCR FLU A (Negative) Influenza Type B (PCR) Negative PCR FLU B (Negative) RSV (PCR) Negative PCR RSV (Negative) POC Troponin I 0.28 H (0.01-0.04) ng/ml Imaging Data Chest x-ray: Attestation: I have reviewed the pertinent imaging results. My impression: Acute pulmonary edema Radiologist's impression: Patient: JACKELYN WEBB Facility:?[facility] Patient ID:?[id number] Site Patient ID:?[id number]. Site :?[id number] Study:?XRay-Chest [place] [facility]-08/31/2023 3:43:17 PM Ordering Physician:Carisa Montero Final Report: INDICATION: Shortness of breath. COMPARISON: None. TECHNIQUE: Portable AP chest. FINDINGS: Mild cardiomegaly. Small bilateral pleural effusions. Evidence of pulmonary congestion. IMPRESSION: CHF with bilateral pleural effusion. Dictated by Eduardo Valenzuela MD @ 08/31/2023 4:07:41 PM (Electronic Signature) ECG Data Attestation: I personally reviewed and interpreted this ECG as follows: ECG interpretation date: 08/31/23 Prior ECG tracings: not available for review Interpretation: EKG done x2 showing atrial and ventricular pacemaker, no acute ST wave changes Critical Care Time Critical Care Time Critical Care Time: Yes Attestation: The patient required my highest level preparedness to intervene emergently and I personally spent this critical care time directly and personally managing the patient. This critical care time included: Obtaining a history; Examining the patient; Pulse oximetry; Ordering and reviewing of studies; Arranging urgent treatment with development of a management plan; Evaluation of patients response to treatment; Frequent reassessment discussions with other providers. This critical care time was performed to assess and manage the high probability of imminent life-threatening deterioration that could result in multiorgan failure. It was exclusive of separate billable procedures and treating other patients and teaching time. Total Critical Care Time in Minutes: 60 Discharge Plan Discharge Clinical Impression: Congestive heart failure, Elevated troponin I level, Shortness of breath, Elevated d-dimer Patient Disposition: [facility] Condition: Guarded Prescriptions: No Action furosemide 40 mg tablet 40 mg PO BID amlodipine 5 mg tablet 7.5 mg PO DAILY tamsulosin 0.4 mg capsule 0.4 mg PO HS atorvastatin 40 mg tablet 40 mg PO HS omeprazole 20 mg capsule,delayed release(DR/EC) 20 mg PO DAILY aspirin 81 mg tablet,delayed release (DR/EC) 81 mg PO DAILY omega-3 fatty acids-fish oil PO cyanocobalamin (vitamin B-12) PO Slow Fe 142 mg (45 mg iron) tablet extended release 142 mg PO DAILY Complete Multivitamin-Mineral 18-400 mg-mcg tablet 1 tab PO DAILY calcium carbonate [Calcium 500] PO carvedilol 6.25 mg tablet PO coenzyme Q10 isosorbide mononitrate 30 mg tablet extended release 24 hr 30 mg PO DAILY omeprazole 40 mg capsule,delayed release(DR/EC) 40 mg PO DAILY isosorbide mononitrate 120 mg tablet extended release 24 hr 120 mg PO DAILY isosorbide mononitrate 60 mg tablet extended release 24 hr 60 mg PO DAILY nitroglycerin 0.4 mg tablet, sublingual sublingual diclofenac sodium 1 % gel 2 g topical QID Stand Alone Forms: [facility] Info Instructions
[2023-08-31 16:58] LABS: Troponin I* 0.11 ng/mL (0.01-0.04)
--- NOTE | 2023-08-31 17:00 | ED.NURSE ---
Critical troponin of 0.11 reported from MD gil is aware.
[2023-08-31] MEDS: ASPIRIN 81 MG TAB.CHEW 162 MG PO (17:16)
[2023-08-31] MEDS: HEPARIN 5,000 UNIT/0.5 ML INJ 3800 UNIT IVP (17:16)
[2023-08-31] MEDS: HEPARIN 25,000 UNIT/500 ML BAG 15 UNIT IV (17:17)
[2023-08-31 18:12] LABS: Troponin, Point-of-Care* 0.28 ng/ml (0.01-0.04)
== END 2023-08-31 19:10 | disposition short-term general hospital (02) ==
PROVIDERS: Emergency Provider Family Medicine; PCP Family Medicine
DX: I50.9 Heart failure, unspecified (principal); R79.89 Other specified abnormal findings of blood chemistry
CPT/HCPCS: 36415; 36600; 71045; 80048; 81001; 82803; 83605; 83880; 84484; 85025; 85379; 85610; 85730; 86140; 87040; 87631; 93005; 94640; 94660; 94761; 96374; 96376; 99285; 99291; A9270; J1644; J1940

== ENCOUNTER 2023-08-31 18:40 | Outpatient (CLI) | payer MEDICARE, OTHER, SELFPAY | END 2023-08-31 18:41 | disposition home or self-care (01) | LOC: AMB 09-15 17:59 | PROVIDERS: PCP Family Medicine; Visit Provider Family Medicine | DX: I50.9 Heart failure, unspecified (principal); R79.89 Other specified abnormal findings of blood chemistry; R06.02 Shortness of breath | CPT/HCPCS: A0425; A0434 ==

== ENCOUNTER 2024-10-03 11:20 | Emergency (ER) | payer MEDICARE, OTHER, SELFPAY ==
--- OUTSIDE RECORDS SUMMARY | 2024-09-07 15:15 | XMS_ITS | Encounter Summary ---
Author Organization [facility] Address [address] [place] [id number] Care Team Providers Care Supervisor Component Assembler Name Role Phone Elsewhere, Pcp Primary Care Provider Unavailabl e Reason for Visit * Reason Onset Date Comments Pre-visit Intake 09/07/2024 * Appointment Request (Routine) - Authorized Specialty Diagnoses / Procedures Referred By Otto bullard Referred To Contact Radiation Oncology Referral ID Status Reason Start Date Expiration Date V isits Requested Visits Authorized [id number] Authorized 07/27/2024 10/27/2025 1 1 Encounter Details Date Type Department Care Team (Latest Contact Info) Description 09/07/2024 3:15 PM CDT Clinical Communication Virtual Review in [place], [place] [address] [place] [address] Pre-visit Intake Social History Tobacco Use Types Packs/Day Years Used Date Smoking Tobacco: Former Cigarettes Passive Smoke Exposure: Past Smokeless Tobacco: Never Tobacco Cessation:Counseling Given: Not Answered Alcohol Use Standard Drinks/Week Comments Never 0 (1 standard drink = 0.6 oz pur e alcohol) [facility] Utilities Answer Date Recorded In the past 12 months has e evly gas, oil, or water [employer] threatened to shut off services in your home? No 09/02/2023 Humiliation, Afraid, Rape, and Kick questionnair e Answer Date Recorded Within the last year, have y ou been afraid of your partner or ex-partner? No 09/02/2023 Within the last year, have y ou been humiliated or emotionally abused in other ways by your partner or ex-partner? No Within the last year, have y ou been kicked, hit, slapped, or otherwise physically hurt by your partner or ex-partner? No 09/02/2023 Within the last year, have y ou been raped or forced to have any kind of sexual activity by your partner or ex-partner? No 09/02/2023 Hunger Vital Sign Answer Date Recorded Within the past 12 months, y ou worried that your food would run out before you got the money to buy more. Never true 09/02/19 Within the past 12 months, t he food you bought just didn't last and you didn't have money to get more. Never true 09/02/2023 PRAPARE - Transportation Answer Date Re corded In the past 12 months, has l ack of transportation kept you from medical appointments or from getting medications? No 05/2023 In the past 12 months, has l ack of transportation kept you from meetings, work, or from getting things needed for daily living? No 09/02/2023 Housing Stability Answer Date Recorded What is your living situation today? I have a [facility] place to live 09/02/2023 Education Answer Date Recorded What is the highest level of school you have completed or the highest degree you have received? Bachelor's degree (e.g., BA, AB, BS) 08/07/2022 Sex and Gender Information Value Date Recorded Sex Assigned at Male 08/22/2022 12:41 PM CDT Legal Sex Male 8:16 PM CDT Gender Identity Male 08/07/2022 10:48 AM CDT Sexual Orientation Straight 08/22/2022 12 :41 PM CDT documented as of this encounter Plan of Treatment Not on file documented as of this encounter Visit Diagnoses Not on filedocumented in this encounter Care Teams Supervisor Component Assembler Relationship Specialty Start Date End Date Elsewhere, Pcp PCP - General Internal Medicine 01/14/24 documented as of this encounter
--- OUTSIDE RECORDS SUMMARY | 2024-09-09 11:21 | XMS_ITS | Encounter Summary ---
Author Organization [facility] Address [address] [place] [address] Care Team Providers Care Chief Operating Engineer Name Role Phone Elsewhere, Pcp Primary Care Provider Unavailabl e Encounter Details Date Type Department Care Team (Latest Contact Info) Description 09/09/2024 11:21 AM CDT - 09/09/2024 11:59 PM CDT Hospital Encounter Department of Laboratory Medicine in [place], [place] [address] [facility] [place] [id number] Dom Sullivan M.D. [address] [place] [address] Chronic Systolic (Congestive) Heart Failure (HCC) Discharge Disposition: Home or Self Care Social History Tobacco Use Types Packs/Day Years Used Date Smoking Tobacco: Former Cigarettes Passive Smoke Exposure: Past Smokeless Tobacco: Never Alcohol Use Standard Drinks/Week Comments Never 0 (1 standard drink = 0.6 oz pur e alcohol) [facility] Utilities Answer Date Recorded In the past 12 months has [employer], oil, or water [employer] threatened to shut off services in your [...] money to buy more. Never true 09/02/19 24 Within the past 12 months, t he [...] your living situation today? I have a [facility] place to live 09/02/2023 Education Answer Date [...] PM CDT documented as of this encounter Medications at Time of Discharge acetaminophen (TYLENOL) 325 mg tablet Take 2 tablets (650 mg total) by mouth every 4 (four) hours as needed for mild pain or score 1-3 of 10. 11/18/2021 amoxicillin (AmoxiL) 500 mg capsuleIndication s:Prosthesis Aortic Valve Take 4 caps (2000 mg) 1 hour prior to procedure. 12 capsule 11 10/30/[address] tablet Take 81 mg by mouth daily. 10/07/2020 atorvastatin (LIPITOR) 40 mg tablet Take 40 mg by mouth at bedtime. 07/17/2021 calcium carbonate 1000 mg (400 mg calcium) chewable tablet Chew 1 tablet daily. carvediloL (COREG) 12.5 mg tablet Take 1 tablet (12.5 mg total) by mouth 2 (two) times a day with meals. 60 tablet 1 09/06/2023 clopidogreL (PLAVIX) 75 mg tablet Take 1 tablet (75 mg total) by mouth daily. 30 tablet 1 09/07/2023 clotrimazole-beta methasone (Lotrisone) 1-0.05 % cream Apply 1 Application topically 2 (two) times a day. Apply to affected area(s). coenzyme Q10 (CO Q-10) 10 mg capsule Take 10 mg by mouth daily. cyanocobalamin (VITAMIN B12) 1,000 mcg tablet Take 1,000 mcg by mouth daily. 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 09/29/2020 isosorbide mononitrate (Imdur) 30 mg 24 hr tablet Take 2 tablets (60 mg total) by mouth daily. 03/09/2024 Lactobacillus acidophilus (Probiotic) 10 billion cell capsule Take 1 each by mouth daily. leuprolide (Eligard, 6 month,) 45 mg injection Inject 45 mg under the skin. lisinopriL 5 mg tablet Take 1 tablet (5 mg total) by mouth daily. 90 tablet 3 06/25/2024 magnesium chloride (SLOW-MAG) 71.[address] tablet Take 71.5 mg by mouth every morning before breakfast. Do not crush or chew. multivitamin (Multiple Vitamins) tablet Take 1 tablet by mouth daily. nitroglycerin (Nitrostat) 0.[address] 1 tablet (0.4 mg total) under the tongue every 5 (five) minutes as needed for chest pain. May repeat every 5 minutes for up to 3 doses 100 tablet 11 11/13/2023 pantoprazole (PROTONIX) 40 mg EC tablet Take 1 tablet (40 mg total) by mouth every morning before breakfast. 30 tablet 09/07/2023 tamsulosin (FLOMAX) 0.4 mg 24 hr capsule Take 0.4 mg by mouth every evening. 07/17/2021 torsemide (Demadex) 20 mg tablet Take 1 tablet (20 mg total) by mouth daily. Dose reduction June 05 2024 06/05/2024 documented as of this encounter Plan of Treatment Not on file documented as of this encounter Procedures Procedure Name Priority Date/Time Associated Diagnosis Comments CREATININE WITH EGFR, S/P Routine 09/09/2024 11:30 AM CDT Chronic Systolic (Congestive) Heart Failure (HCC) documented in this encounter Results * (ABNORMAL) Creatinine with Estimated GFR (09/09/2024 11:30 AM CDT) Creatinine 1.59(H) 0.74 - 1.35 mg/dL 09/09/2024 2:23 PM CDT [facility] Estimated GFR (eGFR) 41(L) >=60 mL/min/BSA 09/09/2024 2:23 PM CDT [facility] Comment: Estimated GFR calculated using the 2020 CKD_EPI creatinine equation. Blood (Blood, Venous) 09/09/2024 11:30 AM CDT 09/09/2024 1:24 PM CDT us Dom Sullivan M.D. LAB BLOOD ADD-ON Final Result [facility] [address] [place] [address], [facility] in [place] [address] [place] [address] documented in this encounter Visit Diagnoses Diagnosis Chronic Systolic (Congestive) Heart Failure (HCC) documented in this encounter Care Teams Chief Operating Engineer Relationship Specialty Start Date End Date Elsewhere, Pcp PCP - General Internal Medicine 01/14/24 documented as of this encounter
--- OUTSIDE RECORDS SUMMARY | 2024-09-16 10:10 | XMS_ITS | Encounter Summary ---
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 [address] [place] [address] Phone: tel: fax: 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 [address] [place] [phone] Phone: tel: fax: [facility] Region Referral ID Status Reason Start Date Expiration Date Visits Re quested Visits Authorized [id number] Closed 06/18/2024 09/18/2025 1 1 Encounter Details Date Type Department Care Team (Latest Contact Info) Description 09/16/2024 10:10 AM CDT - 09/16/2024 11:59 PM CDT Hospital Encounter Department of Radiology in [place], [place] [address] [place] [address] Kishor Meyers APRN, C.N.P., M.S. 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 Narrative 09/16/2024 11:00 AM CDT EXAM: CT CHEST WITHOUT IV CONTRAST COMPARISON: Chest CT 06/08/2024, 12/11/2023, 09/09/[address] 12/18/2023 FINDINGS: Lungs: Subsolid, subpleural nodule in the right lower lobe measures up to 1.6 x 1.5 x 1.6 cm, previously measuring 1.4 x 1.4 x 1.6 cm. Stable posttreatment changes to the right upper lobe with subpleural scarring/atelectasis. Right middle lobe scarring Few other scattered tiny sub-5 mm pulmonary nodules are not significant changed. Moderate emphysema. No pleural effusion. Stable subpleural thickening/nodule along the right horizontal fissure Mediastinum: Heart size is normal without pericardial effusion. TAVR. Severe coronary and mitral valve calcifications. Pacemaker. No enlarged mediastinal lymph nodes. Upper abdomen: Right adrenal adenoma. Cholecystectomy. Fat-containing ventral hernia. Bones/soft tissues: No acute or suspicious osseous or soft tissue abnormality. Degenerative changes in the spine. Left back lipoma. Stable rib hyperdense lesions on the right. Median sternotomy 3D maximum intensity projection (MIP) images were created on a dependent workstation as ordered by the treating provider and reviewed by the radiologist to increase sensitivity for detection of pulmonary nodules. Procedure Note Trae Kenny M.D. - 09/16/2024 EXAM: CT CHEST WITHOUT IV CONTRAST COMPARISON: Chest CT 06/08/2024, 12/11/2023, 09/09/[address] 12/18/2023 FINDINGS: Lungs: Subsolid, subpleural nodule in the right lower lobe measures up to1.6 x 1.5 x 1.6 cm, previously measuring 1.4 x 1.4 x 1.6 cm. Stableposttreatment changes to the right upper lobe with subpleuralscarring/atelectasis. Right middle lobe scarring Few other scattered tiny sub-5 mm pulmonary nodules are not significantchanged. Moderate emphysema. No pleural effusion. Stable subpleuralthickening/nodule along the right horizontal fissure Mediastinum: Heart size is normal without pericardial effusion. TAVR.Severe coronary and mitral valve calcifications. Pacemaker. No enlargedmediastinal lymph nodes. Upper abdomen: Right adrenal adenoma. Cholecystectomy. Fat-containingventral hernia. Bones/soft tissues: No acute or suspicious osseous or soft tissueabnormality. Degenerative changes in the spine. Left back lipoma. Stablerib hyperdense lesions on the right. Median sternotomy 3D maximum intensity projection (MIP) images were created on a dependentworkstation as ordered by the treating provider and reviewed by theradiologist to increase sensitivity for detection of pulmonary nodules. IMPRESSION: Slight increase in size of 1.6 cm right lower lobe subsolid nodule since06/08/2024 which remains suspicious for adenocarcinoma spectrum lesion. us Kishor Meyers APRN, C.N.P., M.S. 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
--- OUTSIDE RECORDS SUMMARY | 2024-09-17 13:30 | XMS_ITS | Encounter Summary ---
Author Organization [facility] Address [address] [place] [address] Care Team Providers Care Camera Repairman Name Role Phone Elsewhere, Pcp Primary Care Provider Unavailabl e Reason for Referral * Outpatient (Routine) - Authorized Specialty Diagnoses / Procedures Referred By Otto bullard Referred To Contact Radiation Oncology Kishor Meyers APRN, C.N.P., M.S. [address] [place] [phone] Phone: tel: fax: Jairon Delarosa M.D. 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 [address] [place] [phone] Phone: tel: fax: [facility] Region Referral ID Status Reason Start Date Expiration Date V isits Requested Visits Authorized [id number] Authorized 09/17/2024 12/18/2025 1 1 * Outpatient (Routine) - Closed Specialty Diagnoses / Procedures Referred By Otto bullard Referred To Contact Radiation Oncology Kishor Meyers APRN, C.N.Sammi., M.S. [address] [place] [phone] Phone: tel: fax: Jairon Delarosa M.D. [address] [place] [phone] Phone: tel: fax: Referral ID Status Reason Start Date Expiration Date Visits Re quested Visits Authorized [id number] Closed 06/18/2024 12/18/2025 [address] chest scan in [place] followed by a follow-up the following day. Reason for Visit * Outpatient (Routine) - Closed Specialty Diagnoses / Procedures Referred By Otto bullard Referred To Contact Radiation Oncology Kishor Meyers APRN, C.N.Anurag, M.S. [address] [place] [phone] Phone: tel: fax: Jairon Delarosa M.D. [address] [place] [phone] Phone: tel: fax: Referral ID Status Reason Start Date Expiration Date Visits Re quested Visits Authorized [id number] Closed 06/18/2024 12/18/2025 1 1 Encounter Details Date Type Department Care Team (Latest Contact Info) Description 09/17/2024 1:30 PM CDT - 09/17/2024 2:00 PM CDT Hospital Encounter Department of Radiation Oncology in [place], [place] [address] [place] [address] Jairon Delarosa M.D. 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 I have a [facility] place to live 09/02/2023 Education Answer [...] 2024 06/05/2024 documented as of this encounter Progress Notes * Kishor Meyers APRN, C.N.P., M.S. - 09/17/2024 1:30 PM CDT Images from the original note were not included. RADIATION ONCOLOGY FOLLOW-UP VISIT NOTE Established patient of Jairon Delarosa MD ([phone]). REQUESTING PROVIDER Kishor Meyers APRN, C.N.P., M.S. NAME: Sonny Danielle ADDRESS: [address] [place] [phone] DIAGNOSIS: No diagnosis found. CHIEF COMPLAINT: Mr. Sonny Danielle is an 88 y.o. male with a history of a [id number] RUL lung cancer s/p SBRT 50 Gy/5 fx, completed on 08/24/2022 and a history of a RML lung cancer s/p SBRT 50 Gy/5 fx, completed on 09/10/2016. Patient returns for review of PET scan results which was obtained for further evaluation of a posterolateral. Follow-up visit conducted via real-time audio/video technology by Luciano Meyers APRN C.N.P., M.S. in [facility] to the patient in Patient's Home. HISTORY OF PRESENT ILLNESS Mr. Danielle is an 88 y.o. 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 Radiation Therapy Treatment Details (08/20/2022 - 08/24/2022) Site: Right Lung Technique: SBRT Goal: Curative Planned Treatment Start Date: 08/20/2022 INTERVAL HISTORY: Mr. Danielle presents to Radiation Oncology for a follow-up visit since completing SBRT to the RULlung cancer in July 2022.. This follow-up visit was conducted via the telephone per the patient's request. His daughter dio Camargo was present with him during the telephone visit. Mr. Danielle reports that he is feeling well. He has not had any progressive shortness of breath; he does report that he has been coughing more recently. He is currently undergoing low-dose radiation therapy to his scalp for squamous cell carcinoma of the scalp. 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 He has multipleskin cancers on his scalp insert low his local lithographic photographer is proceeding with low-dose image guided superficial radiation therapy (IGSRT). He tries to walk on his treadmill for 30 minutes daily, although he admits that he misses some days. Mr. Danielle denies any other new concerns. REVIEW OF SYSTEMS Review of systems as noted in HPI. Medications, Allergies, Pertinent Past Medical History, Past Surgical History, Social History, and Family History were reviewed. 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 2022: 50 Gy/5 fx to RUL nodule. OTHER PREVIOUS CANCER TREATMENT: Leuprolide for metastatic prostate cancer (active treatment). Zoledronic acid. OBJECTIVE There were no vital signs taken since this visit was conducted via the telephone. PHYSICAL EXAMINATION There was no physical exam since this visit was conducted via the telephone. DIAGNOSTICS CT Chest without IV Contrast Result Date: 09/16/2024 Impression: Slight increase in size of 1.6 cm right lower lobe subsolid nodule since 06/08/2024 which remains suspicious for adenocarcinoma spectrum lesion. 09/16/2024 CT chest 06/08/2024 CT chest 12/17/2024 PET/CT ASSESSMENT / PLAN No diagnosis found. Mr. Danielle is an 88 y.o. with a history of a [id number] RUL lung cancer s/p SBRT 50 Gy/5 fx, completed on 08/24/2022 and a history of a RML lung cancer s/p SBRT 50 Gy/5 fx, completed on 09/10/2016. Patient presents for review of PET scan results. I informed Mr. Danielle that the CT chest scan shows additional slight enlargement of the right lower lobe lung nodule that may be a slow-growing low- grade adenocarcinoma spectrum lung cancer. I informed him that I reviewed the scan with Dr. Delarosa and our recommendation is to repeat a CT chest scan in three months time for re-evaluation. I noted that the nodule did not show any PET avidity onhis PET scan from December 2023. If this continues to enlarge then we may repeat a PET scan at some point to assess for malignancy. All of his and his daughter's questions were answered to the best of my ability and to their apparent satisfaction. Mr. Danielle requests that his CT chest scan be do ne in [place] and then we can meet for follow-up visit to review the results via video or telephone. Mr. Danielle verbalized understanding of our discussion and he expressed agreement with the current plan of care for follow-up. EDUCATION Ready to learn, no apparent learning barriers were identified; learning preferences include listening. Explained diagnosis and treatment plan; patient expressed understanding of the content. I personally spent 30 minutes in care of the patient today. Time includes both non face to face andface to face patient care. Luciano Meyers APRN, C.N.Sammi., M.S. 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) Expected: 12/15/2024, Expires: 12/18/2025 Scheduled Referrals Name Type Priority Associated Diagnoses Order Schedule Radiation Oncology office visit (clinic) Outpatient Referral Routine Once for 1 Occurrences starting 09/17/2024 until 09/17/2024 Radiation Oncology office visit (clinic) Outpatient Referral Routine Expected: (Approximate), Expires: 12/18/2025 documented as of this encounter Visit Diagnoses Diagnosis Nodule Pulmonary- Primary 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
[2024-10-03 11:28] VITALS: BP 157/66; PULSE 68; RESP 14; TEMP 36.2; O2SAT 98; BMI 22.5
--- NOTE | 2024-10-03 11:51 | ED.MALEGU ---
HPI - Male Genitourinary General Date Seen: 10/03/24 Chief complaint: Urogenital Problems, Male Stated complaint: bladder infection Time Seen by Provider: 10/03/24 11:29 Source: patient and family Mode of arrival: ambulatory Limitations: no limitations History of Present Illness HPI Narrative: Patient is a 88-year-old gentleman who presents here with with initial complaint dysuria but I believe it is actually more frequency of urination. He was assessed on 09/21 for UTI and started on Keflex, was called on the 09/25 and said he grew organisms that were resistant, was placed on Cipro 500 b.i.d.. He does have a history of renal insufficiency with creatinines in the 1.5 region the gym. History of prostate cancer, currently not being treated with PSA in the 6. Denies fever hematuria back pain, says he is peeing every hour, here with his daughter and his daughters partner. Associated symptoms: Reports denies other symptoms Related Data Home Medications ?Medication ?Instructions ?Recorded ?Confirmed amlodipine 5 mg tablet 7.5 mg PO DAILY 11/15/21 11/04/23 aspirin 81 mg tablet,delayed 81 mg PO DAILY 11/15/21 11/04/23 release atorvastatin 40 mg tablet 40 mg PO HS 11/15/21 11/04/23 calcium carbonate PO 11/15/21 11/04/23 cyanocobalamin (vitamin B-12) PO 11/15/21 11/04/23 ferrous sulfate 142 mg (45 mg 142 mg PO DAILY 11/15/21 11/04/23 iron) tablet,extended release (Slow Fe) multivitamin-ferrous 1 tab PO DAILY 11/15/21 11/04/23 fumarate-folic acid 18 mg-400 mcg tablet (Complete Multivitamin-Multimineral) omega-3 fatty acids-fish oil PO 11/15/21 11/04/23 omeprazole 20 mg capsule,delayed 20 mg PO DAILY 11/15/21 11/04/23 release tamsulosin 0.4 mg capsule 0.4 mg PO HS 11/15/21 11/04/23 carvedilol 6.25 mg tablet mg PO 08/31/23 11/04/23 coenzyme Q10 08/31/23 11/04/23 diclofenac sodium 1 % topical gel 2 g topical QID 06/01/24 08/05/24 isosorbide mononitrate 120 mg 120 mg PO DAILY 08/31/23 11/04/23 tablet,extended release 24 hr isosorbide mononitrate 30 mg 30 mg PO DAILY 08/31/23 11/04/23 tablet,extended release 24 hr isosorbide mononitrate 60 mg 60 mg PO DAILY 08/31/23 11/04/23 tablet,extended release 24 hr nitroglycerin 0.4 mg sublingual mg sublingual 08/31/23 11/04/23 tablet omeprazole 40 mg capsule,delayed 40 mg PO DAILY 08/31/23 11/04/23 release Previous Rx's ?Medication ?Instructions ?Recorded levofloxacin 250 mg tablet 250 mg PO DAILY #7 tabs 10/03/24 Allergies Allergy/AdvReac Type Severity Reaction Status Date / Time No Known Drug Allergies Allergy Verified 10/03/24 11:27 Review of Systems Status of ROS: Reports: 10 or more systems reviewed and unremarkable except as noted in History and below PFSH PFS Social History Smoking Status: Former smoker Do you use any of these nicotine containing products: None Second hand tobacco smoke exposure: No How often do you have a drink containing alcohol: never AUDIT-C Alcohol total score: 0 Non-prescribed substance use: denies use Exam Narrative: Exam Narrative: Patient is seen in room 6 he is in no apparent distress, talking to me normally. Abdomen percusses out of the dullness is just below his umbilicus, although his bladder scan only shows 15 mL. Normal male genitalia is noted, there is no masses, tenderness to palpation. No other masses or tenderness is noted. I was able to review culture report, the daughter was able to pull this up for me, he grew out Pseudomonas and citratonella. Const: Vital Signs, click to edit/add: Vital Signs - 24 hr 10/03/24 11:28 Temperature 97.2 F L Pulse Rate [Pulse Oximeter] 68 Respiratory Rate 14 Blood Pressure [Ri ght Upper Arm] 157/66 H Pulse Oximetry 98 Oxygen Delivery Me thod Room Air Documenting provider has reviewed patient's vital signs: yes Course Vital Signs Vital signs: Initial Vital Signs Temperature 97.2 F L 10/03/24 11:28 Temperature Source Temporal Artery Scan 10/03/24 11:28 Pulse Rate 68 07/05/25 11:28 Pulse Rhythm Regular 10/03/24 11:28 Respiratory Rate 14 10/03/24 11:28 Blood Pressure 157/66 H 10/03/24 11:28 Blood Pressure Mean 96 10/03/24 11:28 Blood Pressure Position Supine 10/03/24 11:28 Pulse Oximetry 98 10/03/24 11:28 Oxygen Delivery Method Room Air 10/03/24 11:28 Vital Signs Temperature 97.2 F L 10/03/24 11:28 Pulse Rate 68 10/03/24 11:28 Respiratory Rate 14 10/03/24 11:28 Blood Pressure 157/66 H 10/03/24 11:28 Pulse Oximetry 98 10/03/24 11:28 Oxygen Delivery Method Room Air 10/03/24 11:28 Temperature 97.2 F L 10/03/24 11:28 Pulse Rate 68 10/03/24 11:28 Respiratory Rate 14 10/03/24 11:28 Blood Pressure 157/66 H 10/03/24 11:28 Pulse Oximetry 98 10/03/24 11:28 Oxygen Delivery Method Room Air 10/03/24 11:28 Medications Administered Medications: Discontinued Medications Generic Name Dose Route Start Last Admin Trade Name Freq PRN Reason Stop Dose Admin Levofloxacin 250 mg 10/03/24 14:24 10/03/24 14:37 Levofloxacin 250 Mg Tablet PO 10/03/24 14:25 250 mg ONCE ONE Administration MDM - Male Genitourinary MDM Narrative Medical decision making narrative: I discussed with the patient in the family, the fact that his urinary tract infection is back, with 5-10 white blood cells this may be an element of prostatitis. This can be somewhat harder to treat, I would like input from his primary care physician and possibly Urology, I think it would be reasonable to have him follow up with Dr.Mark Smith. During the interim as sometimes Urology can be hard to get the other thing is he does have some renal insufficiency, and fact he was on a fairly aggressive doses Cipro along with no Levaquin I would not mind if he got a basic metabolic profile with his primary care physician. In mid August his creatinine was 1.5 which is not so bad. Family and patient were comfortable with this plan. She will return if any signs and symptoms of worsening Medical Records Attestation: I reviewed the patient's medical records. Lab Data Attestation: I reviewed the patient's lab results. Labs: Lab Results 10/03/24 Range/Units 13:05 Urine Color Yellow (Yellow) Urine Appearance Clear (Clear) Urine pH 6.0 (5.0-8.5) Ur Specific [place] 1.020 (1.000-1.030) Urine Protein 3+ A (Negative) Urine Glucose (UA) Negative (Negative) Urine Ketones Negative (Negative) Urine Blood Trace-intact A (Negative) Urine Nitrite Negative (Negative) Urine Bilirubin Negative (Negative) Urine Urobilinogen 0.2 (0.2-1.0) Ur Leukocyte Esterase Negative (Negative) Urine RBC 0-2 (0-2) Urine WBC 5-10 A (0-5) Urine WBC Clumps Few A (None) Ur Squamous Epith Cells Few (None-Few) Urine Bacteria Few A (None) Discharge Plan Discharge Clinical Impression: Urinary tract infection Patient Disposition: Home w/ Parent or Adult Condition: Stable Instructions: Urinary Tract Infection in Men (DC), Urinary Tract Infection in Older Adults (ED) Additional Instructions: Home rest medications as directed follow-up within the week with primary care, consider follow-up with urology also. If ongoing symptoms I worry about prostatitis here. Is it can be a more of an indolent longstanding need for treatment. We will grow the urine to ensure that we are using the right antibiotic also. Return here if increasing fevers chills weakness or other issues. Activity Level: Light activity Prescriptions: New levofloxacin 250 mg tablet 250 mg PO DAILY Qty: 7 0RF No Action amlodipine 5 mg tablet 7.5 mg PO DAILY tamsulosin 0.4 mg capsule 0.4 mg PO HS atorvastatin 40 mg tablet 40 mg PO HS omeprazole 20 mg capsule,delayed release(DR/EC) 20 mg PO DAILY aspirin 81 mg tablet,delayed release (DR/EC) 81 mg PO DAILY omega-3 fatty acids-fish oil PO cyanocobalamin (vitamin B-12) PO Slow Fe 142 mg (45 mg iron) tablet extended release 142 mg PO DAILY Complete Multivitamin-Mineral 18-400 mg-mcg tablet 1 tab PO DAILY calcium carbonate [Calcium 500] PO carvedilol 6.25 mg tablet PO coenzyme Q10 isosorbide mononitrate 30 mg tablet extended release 24 hr 30 mg PO DAILY omeprazole 40 mg capsule,delayed release(DR/EC) 40 mg PO DAILY isosorbide mononitrate 120 mg tablet extended release 24 hr 120 mg PO DAILY isosorbide mononitrate 60 mg tablet extended release 24 hr 60 mg PO DAILY nitroglycerin 0.4 mg tablet, sublingual sublingual diclofenac sodium 1 % gel 2 g topical QID Follow Up/Referrals: Louis Smith MD [Primary Care Provider, Family Practice] Stand Alone Forms: [facility] Info Instructions
--- OUTSIDE RECORDS SUMMARY | 2024-10-03 11:57 | XMS_ITS | Clinical Summary ---
Author Organization [facility] Address [address] [place] [address] Care Team Providers Care Petal Shaper Hand Name Role Phone Elsewhere, Pcp Primary Care Provider Unavailabl e Source Comments Patient records contain information from all sites at [facility]. For routine questions regarding patient records, call [phone] during business hours, M-F 8:00 AM - 5:00 PM Central Time. Record requests for emergency care only can be directed to [phone] at any time.[facility] Allergies No known active allergies Medications * This document contains information received from the source organization and may not represent a complete record from that organization. tamsulosin (FLOMAX) 0.4 mg 24 hr capsule Take 0.4 mg by mouth every evening. 2 Active ferrous sulfate 325 mg (65 mg iron) tablet Take 1 tablet by mouth daily with breakfast. 1 Active atorvastatin (LIPITOR) 40 mg tablet Take 40 mg by mouth at bedtime. [address] tablet Take 81 mg by mouth daily. 1 Active calcium carbonate 1000 mg (400 mg calcium) chewable tablet Chew 1 tablet daily. Active cyanocobalamin (VITAMIN B12) 1,000 mcg tablet Take 1,000 mcg by mouth daily. Active multivitamin (Multiple Vitamins) tablet Take 1 tablet by mouth daily. Active coenzyme Q10 (CO Q-10) 10 mg capsule Take 10 mg by mouth daily. Active acetaminophen (TYLENOL) 325 mg tablet Take 2 tablets (650 mg total) by mouth every 4 (four) hours as needed for mild pain or score 1-3 of 10. 2 Active Lactobacillus acidophilus (Probiotic) 10 billion cell capsule Take 1 each by mouth daily. Active leuprolide (Eligard, 6 month,) 45 mg injection Inject 45 mg under the skin. Active magnesium chloride (SLOW-MAG) 71.[address] tablet Take 71.5 mg by mouth every morning before breakfast. Do not crush or chew. 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 60 tablet 1 4 Active clopidogreL (PLAVIX) 75 mg tablet Take 1 tablet (75 mg total) by mouth daily. 30 tablet 1 4 Active pantoprazole (PROTONIX) 40 mg EC tablet Take 1 tablet (40 mg total) by mouth every morning before breakfast. 30 tablet 4 Active Additional Information Patient taking differently: 20 mgoral Daily before morning meal, Reported on 09/07/2024 amoxicillin (AmoxiL) 500 mg capsuleIndicatio ns:Prosthesis Aortic Valve Take 4 caps (2000 mg) 1 hour prior to procedure. 12 capsule 11 4 Active nitroglycerin (Nitrostat) 0.[address] 1 tablet (0.4 mg total) under the tongue every 5 (five) minutes as needed for chest pain. May repeat every 5 minutes for up to 3 doses 100 tablet 11 4 Active clotrimazole-bet amethasone (Lotrisone) 1-0.05 % cream Apply 1 Application topically 2 (two) times a day. Apply to affected area(s). Active isosorbide mononitrate (Imdur) 30 mg 24 hr tablet Take 2 tablets (60 mg total) by mouth daily. 4 Active torsemide (Demadex) 20 mg tablet Take 1 tablet (20 mg total) by mouth daily. Dose reduction June 05 2024 5 Active lisinopriL 5 mg tablet Take 1 tablet (5 mg total) by mouth daily. 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 Pectoris (Stable Angina/Angina Of Exertion) 11/15/2021 Benign Prostatic Hyperplasia Hypertrophy 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 struction 11/15/2021 Hypertension Essential Primary 11/15/2021 Hypertensive Chronic Kidney Disease With Stage 1 Through Stage 4 Chronic Kidney Disease, Or Unspecified Chronic Kidney Disease 11/15/2021 Impaired Fasting Glucose 11/15/2021 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 Juliane Moore. Gastroesophageal Reflux Disease NOS 08/01/2006 Overview (11/15/2021): refractory to H2 blockers Resolved Problems Problem Noted Date Diagnosed Date Resolved Date Congestive Heart Failure Eje ction Fraction Less Than 35 Percent And [place] [employer] Class 2-3 02/10/2024 06/05/2024 Encounters * This document contains information received from the source organization and may not represent a complete record from that organization. Date Type Department Care Team Description 09/17/2024 1:30 PM CDT - 09/17/2024 2:00 PM CDT Hospital Encounter Department of Radiation Oncology in [address] [address] Jairon Delarosa M.D. 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 Chronic Systolic (Congestive) Heart Failure (HCC) Discharge Disposition: Home or Self Care 09/07/2024 3:15 PM CDT Clinical Communication Virtual Review in [address] [address] Pre-visit Intake 08/10/2024 3:17 PM CDT - 08/10/2024 11:59 PM CDT Hospital Encounter Department of Cardiovascular Diseases in [address] [address] Palomo Foreman M.D. Discharge Disposition: Home or Self Care 08/10/2024 Clinical Communication Department of Cardiovascular Medicine in [address] [address] Joi Haas, RYanickNYanick V sensing episodes recorded by CRTP 07/27/2024 Clinical Communication Department of Radiation Oncology in [address] [address] Jairon Delarosa M.D. 07/27/2024 Clinical Communication Department of Radiation Oncology in [place], [place] [address] [place] [address] Jairon Delarosa M.D. from Last 3 Months Social History Tobacco Use Types Packs/Day Years Used Date Smoking Tobacco: Former Cigarettes Passive Smoke Exposure: Past Smokeless Tobacco: Never Tobacco Cessation:Counseling Given: Not Answered Alcohol Use Standard Drinks/Week Comments Never 0 (1 standard drink = 0.6 oz pur e alcohol) [facility] Utilities Answer Date Recorded In the past 12 months has e electric, gas, oil, or water company threatened to shut off services in your [...] your living situation today? I have a [facility] place to live 09/02/2023 Education Answer [...] Orientation Straight 08/22/2022 12 :41 PM CDT Last Filed Vital Signs Vital Sign Reading Time Taken Comments Blood Pressure 132/56 06/05/2024 10:19 AM ADJUNCT PSYCHOLOGY INSTRUCTOR Pulse 71 06/05/2024 10:19 AM ADJUNCT PSYCHOLOGY INSTRUCTOR Temperature 36.2 C (97.2 F) 06/05/2024 10:19 AM ADJUNCT PSYCHOLOGY INSTRUCTOR Respiratory Rate 18 09/06/2023 1:15 PM CDT Oxygen Saturation 98% 06/05/2024 10: 19 AM ADJUNCT PSYCHOLOGY INSTRUCTOR Inhaled Oxygen Concentration - - Weight 64.7 kg (142 lb 10.2 oz) 025 10:19 AM ADJUNCT PSYCHOLOGY INSTRUCTOR Height 159 cm (5' 2.6) 02/11/2024 9:02 AM ADJUNCT PSYCHOLOGY INSTRUCTOR Body Mass Index 25.59 02/11/2024 9:02 AM ADJUNCT PSYCHOLOGY INSTRUCTOR Plan of Treatment Health Maintenance Due Date Last Done Comments COVID-19 Vaccine ( season) 2023 12/29/2021, 03/26/2021, 05/12/2020, Additional history exists Depression Screening (Annual PHQ-2) 04/01/2024 Fall Risk Screen (Annual) 04/01/2024 Influenza Vaccine (#1) 2024 , 02/14/2022, 01/11/2020, Additional history exists Creatinine Level (Kidney Function Test) 09/17/2025 09/17/2024, 09/09/2024, 06/19/2024, Additional history exists Fasting Glucose for Diabetes Screening 09/17/2025 09/17/2024, 06/11/2024, 03/16/2024, Additional history exists Potassium Level 09/17/2025 09/17/2024, 0304/2024, 06/11/2024, Additional history exists Sodium Level 09/17/2025 09/17/2024, 05/30, 03/16/2024, Additional history exists DTaP,Tdap,and Td Vaccines (2 - Td or Tdap) 01/26/2032 01/25/2022, 01/04/2009 Pneumococcal vaccine (50+ years) Completed 10/08/2018, 01/07/2007 Zoster Vaccines Completed 05/12/2022, 01/11/2020 RSV vaccine - (32-36 weeks) or 60+ years Completed 01/16/2024 HPV Vaccines Aged Out No longer eligi ble based on patient's age to complete this topic IPV Vaccines Aged Out No longer eligi ble based on patient's age to complete this topic Medical Devices Implanted Type Area Lead Massage Therapist Device Identifier Shelf Expiration Date Model / Serial / Lot Lead Ppm Capsure Fix Novus 52 - [id number] - [id number] Implanted:Qty : 1 on 11/16/2021 by Carlos Manuel Odonnell M.D. at [facility] Cardiac Lead Medtronic 09/30/2023 [id number] / [id number] / Lead Ppm Capsure Fix Novus 45 - [id number] - [id number] Implanted:Qty : 1 on 11/16/2021 by Carlos Manuel Odonnell M.D. at [facility] Cardiac Lead Medtronic 09/12/2023 [id number] / [id number] / Unknown 4076 Capsurefix Novus Mri Surescan [id number] Implanted: (Quantity not on file) Cardiac Lead Unknown 4076 CAPSUREFIX NOVUS MRI SURESCAN / [id number] / Unknown 4076 Capsurefix Novus Mri Surescan [id number] Implanted: (Quantity not on file) Cardiac Lead Unknown 4076 CAPSUREFIX NOVUS MRI SURESCAN / [id number] / Ld Att Stability 4 Polr 88 - [id number] - [id number] Implanted:Qty : 1 on 02/11/2024 by Filomena Swift M.D. at [facility] Cardiac Lead Medtronic 07/01/2025 [id number] / [id number] / Cardiac Stent Cardiac Stent Chest Cardiac Valve Prosthesis Cardiac Valve Prosthesis Chest Mesh Or Patch Mesh or Patch Abdomen Description:Possible hernia mesh Envelope Tyrx - [id number] Implanted:Qty : 1 on 11/16/2021 by Carlos Manuel Odonnell M.D. at [facility] Mesh or Patch Medtronic 08/13/2022 [id number] / / [id number] Envelope Tyrx - [id number] Implanted:Qty : 1 on 02/11/2024 by Filomena Swift M.D. at [facility] Mesh or Patch Medtronic 11/27/2024 [id number] / / [id number] Bilateral Ocular Lens Ocular Lens Bilateral: Eye Ppm Blocker Automatic Percepta Quad Is4 - [id number] - [id number] Implanted:Qty : 1 on 02/11/2024 by Filomena Swift M.D. at [facility] Pacemaker Medtronic 06/12/2025 [id number] / [id number] / Explanted Type Area Lead Massage Therapist Device Identifier Shelf Expiration Date Model / Serial / Lot Ppm Lucille - [id number] - [id number] Implanted:Qty: 1 on 11/16/2021 by Carlos Manuel Odonnell M.D. 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 Kishor Meyers APRN C.N.P., M.S. IMG CT PROCEDU RES Final Result * (ABNORMAL) Creatinine with Estimated GFR (09/09/2024 11:30 AM CDT) Creatinine 1.59(H) 0.74 - 1.35 mg/dL 09/09/2024 2:23 PM CDT [facility] Estimated GFR (eGFR) 41(L) >=60 mL/min/BSA 09/09/2024 2:23 PM CDT [facility] Comment: Estimated GFR calculated using the 2020 CKD_EPI creatinine equation. Blood (Blood, Venous) 09/09/2024 11:30 AM CDT 09/09/2024 1:24 PM CDT Dom Sullivan M.D. LAB BLOOD ADD-ON Final Result [facility] [address] [place] [address], [place] [facility] [place] [address] [place] [address] * CAR CARDIAC DEVICE INTERROGATION (08/10/2024 3:17 PM CDT) Date Time Interrogation Session [id number] [facility] Type Interrogation Session Remote [facility] Implantable Pulse Generator Lead Massage Therapist Medtronic [facility] Implantable Pulse Generator Type Cardiac Resynchronization Therapy - Pacemaker [facility] Implantable Pulse Generator Model Percepta Quad ACCOUNT PLANNER-P [id number] [facility] Implantable Pulse Generator Serial Number [id number] [facility] Implantable Pulse Generator Implant Date 20240211 [facility] Battery Remaining Longevity 118.0 mo [facility] Battery Voltage 3.120 [facility] [employer] [facility] Battery SIGNAL WORKER HELPER Trigger 2.595 [facility] Battery Status OK [employer] [facility] [place] Statistic RA Percent Paced 97.02 [facility] [place] Statistic RV Percent Paced 99.52 [facility] ACCOUNT PLANNER Statistic LV Percent Paced 99.49 [facility] ACCOUNT PLANNER Statistic ACCOUNT PLANNER Percent Paced 99.49 [facility] Atrial Tachy Statistic AT/AF Alda Percent 0.00 [facility] Lead Channel Sensing Intrinsic Amplitude 1.875 [facility] Lead Channel Setting Sensing Sensitivity 0.30 [facility] Lead Channel Impedance Value 361 [facility] Lead Channel Pacing Threshold Amplitude 0.625 [facility] Lead Channel Pacing Threshold Pulse Width 0.4 [facility] Lead Channel Measurements Date and Time [id number] [facility] Lead Channel Setting Pacing Amplitude 1.500 [facility] Lead Channel Setting Pacing Pulse Width 0.4 [facility] Lead Channel Sensing Intrinsic Amplitude 11.375 [facility] Lead Channel Setting Sensing Sensitivity 0.90 [facility] Lead Channel Impedance Value 361 [facility] Lead Channel Pacing Threshold Amplitude 0.625 [facility] Lead Channel Pacing Threshold Pulse Width 0.4 [facility] Lead Channel Measurements Date and Time [id number] [facility] Lead Channel Setting Pacing Amplitude 2.000 [facility] Lead Channel Setting Pacing Pulse Width 0.4 [facility] Lead Channel Impedance Value 855 [facility] Lead Channel Pacing Threshold Amplitude 1.375 [facility] Lead Channel Pacing Threshold Pulse Width 0.4 [facility] Lead Channel Measurements Date and Time [id number] [facility] Lead Channel Setting Pacing Amplitude 2.000 [facility] Lead Channel Setting Pacing Pulse Width 0.4 [facility] [place] Setting Mode (NBG Code) DDDR [facility] Ventricular chambers paced during ACCOUNT PLANNER pacing. BiV [facility] [place] Setting Lower Rate Limit 60 [facility] [place] Setting AT Mode Switch Rate 150 [facility] [place] Setting Maximum Tracking Rate 120 [facility] [place] Setting Maximum Sensor Rate 120 [facility] [place] Setting PAV Delay 130 [facility] [place] Setting GEE Delay 100 [facility] ACCOUNT PLANNER LV-RV Delay 0 F[facility] Lead Channel Setting Sensing Polarity Bipolar [facility] Lead Channel Setting Sensing Polarity Bipolar [facility] Lead Channel Setting Pacing Polarity Bipolar [facility] Lead Channel Setting Pacing Polarity Bipolar [facility] Lead Channel Setting Pacing Polarity Bipolar [facility] Lead Channel Pacing Threshold Polarity Bipolar [facility] Lead Channel Pacing Threshold Polarity Bipolar [facility] Lead Channel Pacing Threshold Polarity Bipolar [facility] Zone Setting Type Category AT/AF [facility] Murj Rate 1 150 [facility] Murj Therapies Some Rx Off [facility] Zone Setting Status Monitor [facility] Murj Zone ID 2 [facility] Zone Setting Type Category VT [facility] Murj Rate 1 171 [facility] Zone Setting Status ENABLED [facility] Murj Zone ID 6 [facility] Implantable Lead Lead Massage Therapist Medtronic [facility] Implantable Lead Model 4076 CapsureFix Novus MRI SureScan [facility] Implantable Lead Location Right Ventricle [facility] Implantable Lead Connection Status Connected [facility] Implantable Lead Serial Number [id number] [facility] Implantable Lead Implant Date [id number] [facility] Implantable Lead Special Function Lead length: 52.00 cm [facility] Implantable Lead Lead Massage Therapist Medtronic [facility] Implantable Lead Model 4076 CapsureFix Novus MRI SureScan [facility] Implantable Lead Location Right Atrium [facility] Implantable Lead Connection Status Connected [facility] Implantable Lead Serial Number [id number] [facility] Implantable Lead Implant Date [id number] [facility] Implantable Lead Special Function Lead length: 45.00 cm [facility] Implantable Lead Lead Massage Therapist Medtronic [facility] Implantable Lead Model 4798 Attain Stability Quad MRI [facility] Implantable Lead Location Coronary Sinus [facility] Implantable Lead Connection Status Connected [facility] Implantable Lead Serial Number [id number] [facility] Implantable Lead Implant Date [id number] [facility] Implantable Lead Special Function Lead length: 88.00 cm [facility] Anatomical Region Laterality Modality Other 08/18/2024 4:44 PM CDT Impressions 08/18/2024 4:44 PM CDT Encounter Impression: Title: Normal Remote: With Events * Normal Device Function * Events or Alerts: 2 V sensing episodes * Battery: OK, 9.83 yrs * Sensing, impedance and thresholds reviewed * Programmed parameters reviewed * Presenting rhythm reviewed * Heart Rate Histograms reviewed Additional Notes: BiV pacing is 99.5% Title: Ventricular Sensing Episodes * VSE Marker channels are suggestive of _08/07/24 3:22 PM 16 beats of possible NSVT (V>A) for 16 beats at _145-175 bpm and 06/25/24 at 10:21 PM 13 beats of possible NSVT vs accelerated junctional (V>A) with V rate of 97-105 bpm for 6 seconds (duration on episode list is 15 seconds) * Total episodes: 2 Additional Notes: In the context of this being a pacemaker system only, I called patient to review if he had any symptoms during the dates/times of the V sensing recordings and patient denied symptoms. Patient reports that he has been feeling well ever since he was upgrade to a CRTP device. I will send an update to Dr Sullivan, patient's CVD MD. Plan: This patient underwent device interrogation. I agree that the device interrogation was medically indicated to provide appropriate care and continue routine device interrogations as indicated. Encounter Summary: This report includes 1 transmission that was received on 2024-08-10. Battery and reported events were reviewed. Narrative Procedure Note Palomo Foreman M.D. - 08/18/2024 IMPRESSION: Encounter Impression: Title: Normal Remote: With Events * Normal Device Function * Events or Alerts: 2 V sensing episodes * Battery: OK, 9.83 yrs * Sensing, impedance and thresholds reviewed * Programmed parameters reviewed * Presenting rhythm reviewed * Heart Rate Histograms reviewed Additional Notes: BiV pacing is 99.5% Title: Ventricular Sensing Episodes * VSE Marker channels are suggestive of _08/07/24 3:22 PM 16 beats ofpossible NSVT (V>A) for 16 beats at _145-175 bpm and 06/25/24 at 10:21 PM13 beats of possible NSVT vs accelerated junctional (V>A) with V rate hh72-115 bpm for 6 seconds (duration on episode list is 15 seconds) * Total episodes: 2 Additional Notes: In the context of this being a pacemaker system only, Icalled patient to review if he had any symptoms during the dates/times ofthe V sensing recordings and patient denied symptoms. Patient reports thathe has been feeling well ever since he was upgrade to a CRTP device. I will send an update to Tobias, patient's CVD MD. Plan: This patient underwent device interrogation. I agree that the deviceinterrogation was medically indicated to provide appropriate care andcontinue routine device interrogations as indicated. Encounter Summary: This report includes 1 transmission that was receivedon 2024-08-10. Battery and reported events were reviewed. Palomo Foreman M.D. CV IMPLANTABLE CARDIAC DEVICE Final Result from Last 3 Months Insurance [facility] [employer] [facility] MEDICARE Advance Directives For more information, please contact: [phone] * Full Code (Latest Code Status on File) Date Activated Date Inactivated Comments 02/11/2024 12:28 PM 02/11/2024 5:05 PM Question Answer Comments Full Code: Not Discussed Due to: Patient not available * Full Code Date Activated Date Inactivated Comments 08/31/2023 8:48 PM 09/06/2023 4:04 PM Question Answer Comments Full Code: Discussed * Full Code Date Activated Date Inactivated Comments 11/15/2021 10:35 PM 11/18/2021 4:22 PM Question Answer Comments Full Code: Discussed Care Teams Petal Shaper Hand Relationship Specialty Start Date End Date Elsewhere, Pcp PCP - General Internal Medicine 01/14/24
--- OUTSIDE RECORDS SUMMARY | 2024-10-03 11:57 | XMS_ITS | Clinical Summary ---
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 Active amoxicillin (AMOXIL) 500 mg capsule Take 2,000 mg by mouth. Take 1 hour prior to procedure Active calcium carbonate (TUMS) 200 mg calcium (500 mg) chewable tablet Chew 1,000 mg by mouth once daily. Active magnesium chloride (Slow-Mag) delayed release tablet Take 71.5 mg by mouth once daily. Active ferrous sulfate (Slow Fe) 137 mg (45 mg iron) TbER Take 1 Tablet by mouth once daily. Active nitroglycerin (NITROSTAT) 0.[address] 0.4 mg under the tongue every 5 minutes if needed for Chest Pain. Up to 3 tablets in 15 minutes. Active cyanocobalamin (VITAMIN B12) 1,000 mcg tablet Take 1,000 mcg by mouth once daily. Active aspirin (ECOTRIN) 81 mg enteric coated tablet Take 81 mg by mouth once daily with a meal. Active coenzyme q10 100 mg cap Take 100 mg by mouth once daily. Active acetaminophen 325 mg cap Take 650 mg by mouth every 4 hours if needed (mild pain). Active leuprolide acetate, 6 month, (Anthony 6 month,) 45 mg subcutaneous syringe Inject 45 mg subcutaneous EVERY 6 MONTHS. To mix the contents of the 2 syringes, refer to Mixing Procedure in package insert. Active Lactobacillus acidophilus (Probiotic) 10 billion cell cap Take 1 Capsule by mouth once daily. 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 180 Tablet 3 024 Active atorvastatin (LIPITOR) 40 mg tabletIndicatio ns:Pure hypercholestero lemia,Coronary artery disease involving [place] coronary artery of [place] heart without angina pectoris Take 1 Tablet (40 mg) by mouth at bedtime. 90 Tablet 4 024 Active tamsulosin (FLOMAX) 0.4 mg capsuleIndicati ons:Benign prostatic hyperplasia with urinary retention Take 2 Capsules (0.8 mg) by mouth once daily in the evening. 180 Capsule 3 024 Active lisinopriL (PRINIVIL; ZESTRIL) 5 mg tablet Take 5 mg by mouth once daily. Active Cdqbr-6-OBZ-EPA -Fish Oil (Fish OiL) 1,000 (120-180) mg cap Take 1 Capsule by mouth two times daily. Active clotrimazole-be tamethasone 1%-0.05% cream Apply 1 Application topically to affected area(s) two times daily. Active clopidogreL (PLAVIX) 75 mg tabletIndicatio ns:Coronary artery disease involving [place] coronary artery of [place] heart without angina pectoris TAKE 1 TABLET BY MOUTH ONCE DAILY. 90 Tablet 2 025 Active pantoprazole 20 mg tabletIndicatio ns:Chronic GERD Take 1 Tablet (20 mg) by mouth once daily. 90 Tablet 3 025 Active isosorbide mononitrate 60 mg extended release tablet 24 hourIndications :Acute on chronic combined systolic and diastolic CHF (congestive heart failure) (HC),Coronary artery disease involving [place] coronary artery of [place] heart without angina pectoris TAKE 1 TABLET BY MOUTH ONCE DAILY. 60 Tablet 025 Active torsemide 20 mg tabletIndicatio ns:Acute on chronic combined systolic and diastolic CHF (congestive heart failure) (HC),Chronic systolic CHF (congestive heart failure) (HC) TAKE 1 TABLET BY MOUTH EVERY DAY 60 Tablet 025 Active isosorbide mononitrate 60 mg extended release tablet 24 hourIndications :Acute on chronic combined systolic and diastolic CHF (congestive heart failure) (HC),Coronary artery disease involving [place] coronary artery of [place] heart without angina pectoris TAKE 1 TABLET (60 MG) BY MOUTH DAILY 90 Tablet 025 2024 Discontinued torsemide 20 mg tabletIndicatio ns:Acute on chronic combined systolic and diastolic CHF (congestive heart failure) (HC),Chronic systolic CHF (congestive heart failure) (HC) Take 1 Tablet (20 mg) by mouth once daily. 60 Tablet 025 2024 Discontinued cephalexin 500 mg capsuleIndicati ons:Acute cystitis without hematuria Take 1 Capsule (500 mg) by mouth two times daily for 7 days. 14 Capsule 025 2024 Discontinued(* Med ineffective) ciprofloxacin 500 mg tabletIndicatio ns:Dysuria Take 1 Tablet (500 mg) by mouth two times daily before meals for 7 days. 14 Tablet 025 2024 Active Problems Problem Noted Date Diagnosed Date Pacemaker 02/19/2024 Acute on chronic diastolic congestive heart fail ure 07/30/2023 Angina concurrent with and d ue to arteriosclerosis of coronary artery 05/22/2023 Secondary malignant neoplasm of bone 06/11/2022 Chronic systolic CHF (congestive heart failure) 06/11/2022 Overview (10/01/2023): The following is a recent echocardiogram from the [facility] from 09/22/23: Final Impressions 1. Severely enlarged left ventricular chamber size, severe generalized hypokinesis with the best preserved function at the apex, calculated 2-D linear ejection fraction 23%. 2. Indeterminate left ventricular filling pressure. 3. Normal right ventricular chamber size, mildly reduced systolic function, estimated right ventricular systolic pressure 36 mmHg (right atrial pressure of 5 mmHg). 4. Mild-moderate mitral valve regurgitation (two jets). 5. 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 6. Aortic valve prosthesis systolic mean Doppler gradient 10 mmHg. 7. No aortic valve prosthetic regurgitation. No aortic valve periprosthetic regurgitation. 8. Normal inferior vena cava size with normal inspiratory collapse (>50%). 9. No pericardial effusion. 10. Compared to the report of 08/06/2022 the following changes have occurred: Left ventricular ejection fraction has decreased further. 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 Juliane Moore. Pure hypercholesterolemia 01/04/2010 Esophageal reflux 08/01/2006 Overview (08/01/2006): refractory to H2 blockers Unspecified essential hypertension 08/01/2006 Impaired fasting glucose 08/01/2006 Resolved Problems Problem Noted Date Diagnosed Date Resolved Date Atrioventricular block, complete 07/17/2021 05/22/2023 Nonrheumatic aortic valve stenosis 10/05/2020 10/11/2020 Elevated PSA 09/14/2019 10/11/2020 Moderate to severe aortic stenosis 09/30/2018 10/11/2020 Small cell lung cancer 12/19 Overview (12/10/2017): June 2016. S/P radiation Encounters Date Type Department Care Team Description 10/03/2024 Refill [facility] [address] [facility] [address] Louis Smith MD Refill Request (Isosorbide Mononitrate) 09/24/2024 Refill [facility] [address] [facility] [address] Louis Smith MD Refill Request (Torsemide) 09/22/[address] [facility] [address] [place] [address] [place] Appointment 09/21/2024 2:15 PM CDT Office Visit [facility] [address] [facility] [place] [address] Dania Ni, TEE Follow Up (Adenocarcinoma of right lung, stage 1) 09/21/2024 12:50 PM CDT Office Visit [facility] [address] [place] [address] Annia Flanagan NP UTI 09/21/2024 Refill [facility] [address] [place] [address] Louis Smith MD Refill Request (Isosorbide Mononitrate & Torsemide) 09/21/2024 Travel 09/17/2024 11:00 AM CDT - 09/17/2024 11:59 PM CDT Hospital Encounter [facility] [address] [place] [address] Adenocarcinoma of right lung, stage 1 (HC) [C34.91] 09/17/2024 Travel 09/16/2024 10:16 AM CDT - 09/16/2024 11:59 PM CDT Hospital Encounter [facility] [address] [place] [address] Hal Chen MD 09/16/2024 Travel 08/31/2024 Refill [facility] [address] [place] [address] Louis Smith MD Refill Request (Torsemide) 08/17/2024 11:20 AM CDT Office Visit [facility] [address] [place] [address] Louis Smith MD Medication Management (Follow up on oxygen condenser Rx); Gi Problem (Diarrhea off and on x 1 month - wondering if testing should be done) 08/17/2024 Travel 07/22/2024 Orders Only [facility] Scanner 1 scan: (1-Ord) TAREEN DERMATOLOGY, BIOPSY BY SHAVE METHOD RIGHT CENTRAL PARIETAL SCALP, 07/22/2024 07/09/2024 Orders Only [facility] Scanner 1 scan: (1-Ord) TAREEN DERMATOLOGY, [facility], 07/09/2024 from Last 3 Months Immunizations Immunization Administration Dates Next Due COVID-19 vaccine (Pfizer-Bio NTech 30mcg/0.3mL) 12YO+ BIVALENT PF, MDV 12/29/2021 COVID-19 vaccine (Pfizer-Bio NTech 30mcg/0.3mL) PF, MDV 03/26/2021,05/12/2020,04/19/2020 Influenza, IIV3 (Age >=3 years) 01/10/20,01/04/2009,01/19/2008,01/07 Influenza, Inactivated AIIV4 (Age 65+ Years) Preserv Free 02/14/2022 Influenza, Inactivated IIV3 (Age 65+ Years) Preserv Free 01/03/2024,01/11/2020,03/09/2019,12/10 Pneumococcal Poly,23-Valent (Pneumovax) 01/07/2007 Pneumococcal conj 13-Valent (Prevnar 13) 10/08/2018 RSV, Recombinant ADJ Reconst ituted (Arexvy 120MCG/0.5mL) 01/16/2024 Td (Age >=7 Years) 07/27/1998 Td, Preservative Free (age >= 7 Years) 9 Tdap 01/25/2022 Zoster (Shingrix-RZV, recombinant) 05/12/2022, Family History Medical History Relation Name Comments Alcoholism Brother 1 [place] Heart failure Brother 1 [place] of heart faiure at 56 Heart Disease Brother 2 Souleymane of heart disease at 60 Cancer Father bladder Diabetes Father Heart Disease Father of heart failure at 90 Heart Disease Mother of heart disease at 80 COPD Sister of copd at 78 Suicidality Son of suicide at 38 Relation Name Status Comments Brother 1 [place] (Age 56) Brother 2 Souleymane (Age 60) Father (Age 90) Mother (Age 80) Sister (Age 78) Son (Age 38) Social History Tobacco Use Types Packs/Day Years Used Date Smoking Tobacco: Former Cigarettes 1.5 40 1 956 - 04/01/1995 Passive Smoke Exposure: Never Smokeless Tobacco: Never Tobacco Cessation:Counseling Given: Yes Alcohol Use Standard Drinks/Week Comments No 0 (1 standard drink = 0.6 oz pur e alcohol) PHQ-2 Answer Date Recorded PHQ-2 TOTAL SCORE 0 01/03/2024 Social Connections Answer Date Recorded Do you often feel lonely or isolated from those around you? 0 08/17/2024 Financial Resource Strain Answer Date R ecorded Difficulty of Paying Living Expenses 3 08/17/2024 Difficulty of Paying Living Expenses Not on file 08/17/2024 Food Insecurity Answer Date Recorded Do you worry your food will run out before you are able to buy more? 1 08/17/2024 Transportation Needs Answer Date Record ed Does lack of transportation keep you from medica l appointments? 1 08/17/2024 Does lack of transportation keep you from work, meetings or getting things that you need? 1 08/17/2024 Housing Stability Answer Date Recorded What is your housing situation today? 1 08/17/2024 Interpersonal Safety Answer Date Record ed Are you being hit, kicked, p ushed or yelled at (see row info)? No 07/30/2023 Interpersonal Safety Abuse 12 - 18 Not on file 07/30/2023 Interpersonal Safety Ambulatory Vulnerability No t on file 07/30/2023 Utilities Answer Date Recorded Do you have trouble paying f or utilities (for example, heat, electricity, water, phone)? 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 Gender Identity Not on file Sexual Orientation Not on file Occupation Industry Job Start Date Job End Date Retired Not on file Not on file Not on file Obstetrics History Last Filed Vital Signs Vital Sign Reading Time Taken Comments Blood Pressure 155/65 09/21/2024 2:11 PM CDT Pulse 63 09/21/2024 2:11 PM CDT Temperature 36.3 C (97.4 F) 09/21/2024 2:11 PM CDT Respiratory Rate 16 09/21/2024 2:11 PM CDT Oxygen Saturation 98% 09/21/2024 2:11 PM CDT Inhaled Oxygen Concentration - - Weight 63 kg (139 lb) 09/21/2024 2:11 PM CDT Height 159.5 cm (5' 2.8) 01/03/2024 1:09 PM CDT Body Mass Index 24.78 01/03/2024 1:09 PM CDT Plan of Treatment Upcoming Encounters Date Type Department Care Team (Late st Contact Info) Description 10/27/2024 10:50 AM CDT Office Visit [facility] [address] [place] [address] Louis Smith MD [address] [place] [address] 11/25/2024 11:[address] [facility] [address] [place] [address] 12/21/2024 12:30 PM CDT Appointment [facility] [address] [place] [address] 12/23/2024 1:15 PM CDT Office Visit [facility] [address] [place] [phone] Dania Ni, TEE [address] [place] [address] Health Maintenance Due Date Last Done Comments COVID-19 vaccine series ( season) 2023 12/29/2021, 03/26/2021, 05/12/2020, Additional history exists Influenza Vaccine (#1) 2024 , 02/14/2022, 01/11/2020, Additional history exists BMI (ht and wt on same day) for age 18+ 01/02/2025 01/03/2024, 03/26/2022, 12/25/2021, Additional history exists Depression screening for age 12+ 01/02/2025 01/03/2024, 07/17/2021, 06/09/2020, Additional history exists Medicare Wellness for age 65+ 01/03/2025 01/03/2024, 07/17/2021, 06/08/2020 Tetanus booster 01/26/2032 01/25/2022, 08/2008, 07/27/1998 Pneumococcal series for age 50+ Completed 10/08/2018, 01/07/2007 Zoster (shingles) series for age 50+ Completed 05/12/2022, 01/11/2020 RSV vaccine for adults or Completed 01/16/2024 Hepatitis B series for 19+ Aged Out N o longer eligible based on patient's age to complete this topic Medical Devices Implanted Type Area Director Diabetes Device Identifier Shelf Expiration Date Model / Serial / Lot Tissue Pericardium 0.8x8cm Xenosure - [id number] Implanted:Qty: 1 on 10/04/2020 by Roel Harrison MD at [facility] Cv Implants Right: Femoral Artery [employer] 06/26/2026 0.8P8 / / [id number] Valve Aortic 26mm Maxim 3 Ultra Transfemoral Tavr - [id number] Implanted:Qty: 1 on 10/04/2020 by Rene Patino MD at [facility] Cv Implants Right: Aortic Valve [employer] Eva model [id number] 07/14/2022 [id number] / [id number] / Procedures Procedure Name Priority Date/Time Associated Diagnosis Comments URINALYSIS MICROSCOPIC STAT 09/21/2024 1:18 PM CDT Dysuria URINE CULTURE Routine 09/21/2024 1:18 PM CDT Dysuria UA W/ SEDIMENT EXAM REFLEXED PER CRITERIA STAT 09/21/2024 1:18 PM CDT Dysuria CBC WITH AUTO DIFFERENTIAL Timed 09/17/2024 11:13 AM CDT Adenocarcinoma of right lung, stage 1 (HC) [C34.91] PSA TOTAL Today 09/17/2024 11:13 AM CDT Adenocarcinoma of right lung, stage 1 (HC) [C34.91] COMP METABOLIC PANEL Today 09/17/2024 11:13 AM CDT Adenocarcinoma of right lung, stage 1 (HC) [C34.91] CBC WITH AUTO DIFFERENTIAL Today 09/17/2024 11:13 AM CDT Adenocarcinoma of right lung, stage 1 (HC) [C34.91] CT CHEST WO Routine 09/16/2024 10:22 AM CDT MAGNESIUM Routine 08/17/2024 12:51 PM CDT Chronic systolic CHF (congestive heart failure) (HC) SCAN-OPERATIVE/PROCED URE REPORT 07/22/2024 12:00 AM CDT SCAN-OPERATIVE/PROCED URE REPORT 07/09/2024 12:00 AM CDT from Last 3 Months Results * (ABNORMAL) URINALYSIS MICROSCOPIC (09/21/2024 1:18 PM CDT) RBC 0-2 0-2, None Seen /HPF 09/21/2024 1:43 PM CDT [facility] WBC >100(A) 0-2, 3-5, None Seen /HPF 09/21/2024 1:43 PM CDT [facility] BACTERIA Few None Seen, Rare, Few Bacteria/H PF 09/21/2024 1:43 PM CDT [facility] EPITHELIAL CELLS Few None Seen, Few Epi/HPF 09/21/2024 1:43 PM CDT [facility] Urine URINE SPECIMEN / Unknown Non-Blood / Unknown 09/21/2024 1:18 PM CDT 09/21/2024 1:18 PM CDT us Annia Flanagan NP URINE Final Result [facility] [address] [place] [address] * (ABNORMAL) URINE CULTURE (09/21/2024 1:18 PM CDT) CULTURE RESULT(A) 09/25/2024 6:55 AM CDT [facility] CULTURE 10,000-50,000 CFU/mL Citrobacter koseri 09/25/2024 6:55 AM CDT [facility] CULTURE 10,000-50,000 CFU/mL Pseudomonas aeruginosa 09/25/2024 6:55 AM CDT [facility] CULTURE <10,000 CFU/mL Multiple organisms probable contaminants 09/25/2024 6:55 AM CDT [facility] Urine URINE SPECIMEN / Unknown Non-Blood / Unknown 09/21/2024 1:18 PM CDT 09/21/2024 1:18 PM CDT Narrative Organism Antibiotic Method Susceptibility Citrobacter koseri TRIMETHOPRIM/SULF <=1/19: S Citrobacter koseri CEFAZOLIN 2: S Citrobacter koseri GENTAMICIN <=1: S Citrobacter koseri CEFTRIAXONE <=0.25: S Citrobacter koseri CEFTAZIDIME <=0.5: S Citrobacter koseri LEVOFLOXACIN <=0.12: S Citrobacter koseri CIPROFLOXACIN <=0.06: S Citrobacter koseri PIPERACILLIN/TAZO <=4: S Citrobacter koseri CEFEPIME <=0.12: S Citrobacter koseri MEROPENEM <=0.25: S Citrobacter koseri NITROFURANTOIN 32: S Pseudomonas aeruginosa CEFTAZIDIME 1: S Pseudomonas aeruginosa LEVOFLOXACIN 0.5: S Pseudomonas aeruginosa CIPROFLOXACIN 0.5: S Pseudomonas aeruginosa PIPERACILLIN/TAZO <=4: S Pseudomonas aeruginosa CEFEPIME 0.5: S Pseudomonas aeruginosa MEROPENEM <=0.25: S us Annia Flanagan NP MICROBIOLOGY Final Result [facility] [address] [place] [address], * (ABNORMAL) UA W/ SEDIMENT EXAM REFLEXED PER CRITERIA (09/21/2024 1:18 PM CDT) COLOR Yellow Yellow Color 09/21/2024 1:33 PM CDT [facility] CLARITY Cloudy(A) Clear Clarity 09/21/2024 1:33 PM [facility] SPECIFIC GRAVITY,URINE 1.015 1.010, 1.015, 1.020, 1.025 09/21/2024 1:33 PM [facility] PH,URINE 6.0 6.0, 7.0, 8.0, 5.5, 6.5, 7.5, 8.5 09/21/2024 1:33 PM [facility] UROBILINOGEN, QUALITATIVE Normal Normal EU/dl 09/21/2024 1:33 PM [facility] PROTEIN, URINE 100(A) Negative mg/dL 09/21/2024 1:33 PM [facility] GLUCOSE, URINE Negative Negative mg/dL 09/21/2024 1:33 PM [facility] KETONES,URINE Negative Negative mg/dL 09/21/2024 1:33 PM [facility] BILIRUBIN,URI NE Negative Negative 09/21/2024 1:33 PM [facility] OCCULT BLOOD,URINE Small(A) Negative 09/21/2024 1:33 PM [facility] NITRITE Negative Negative 09/21/2024 1:33 PM [facility] LEUKOCYTE ESTERASE Moderate(A) Negative 09/21/2024 1:33 PM [facility] Urine URINE SPECIMEN / Unknown Non-Blood / Unknown 09/21/2024 1:18 PM CDT 09/21/2024 1:18 PM CDT us Annia Flanagan NP URINE Final Result [facility] [address], [place] [id number] * (ABNORMAL) CBC WITH AUTO DIFFERENTIAL (09/17/2024 11:13 AM CDT) WHITE BLOOD COUNT 12.4(H) 4.5 - 11.0 thou/cu mm 09/17/2024 11:18 AM [facility] RED BLOOD COUNT 3.40(L) 4.30 - 5.90 mil/cu mm 09/17/2024 11:18 AM [facility] HEMOGLOBIN 10.8(L) 13.5 - 17.5 g/dL 09/17/2024 11:18 AM [facility] HEMATOCRIT 34.4(L) 37.0 - 53.0 % 09/17/2024 11:18 AM [facility] MCV 101(H) 80 - 100 fL 09/17/2024 11:18 AM [facility] MCH 31.8 26.0 - 34.0 pg 09/17/2024 11:18 AM [facility] MCHC 31.4(L) 32.0 - 36.0 g/dL 09/17/2024 11:18 AM [facility] RDW 14.1 11.5 - 15.5 % 09/17/2024 11:18 AM [facility] PLATELET COUNT 196 140 - 440 thou/cu mm 09/17/2024 11:18 AM [facility] MPV 10.4 6.5 - 11.0 fL 09/17/2024 11:18 AM [facility] % NEUT 76.3 % 09/17/2024 11:18 AM [facility] % LYMPH 12.3 % 09/17/2024 11:18 AM [facility] % MONO 8.3 % 09/17/2024 11:18 AM [facility] % EOS 2.9 % 09/17/2024 11:18 AM [facility] % BASO 0.2 % 09/17/2024 11:18 AM [facility] ABSOLUTE NEUTROPHILS 9.5(H) 1.7 - 7.0 thou/cu mm 09/17/2024 11:18 AM [facility] ABSOLUTE LYMPHOCYTES 1.5 0.9 - 2.9 thou/cu mm 09/17/2024 11:18 AM [facility] ABSOLUTE MONOCYTES 1.0(H) <0.9 thou/cu mm 09/17/2024 11:18 AM CDT [facility] ABSOLUTE EOSINOPHILS 0.4 <0.5 thou/cu mm 09/17/2024 11:18 AM CDT [facility] ABSOLUTE BASOPHILS 0.0 <0.3 thou/cu mm 09/17/2024 11:18 AM CDT [facility] Blood BLOOD SPECIMEN / Unknown Venipuncture / Unknown 09/17/2024 11:13 AM CDT 09/17/2024 11:13 AM CDT Grecia Hampton MD HEMATOLOGY Final Resu lt [facility] [address] [place] [address] * (ABNORMAL) PSA TOTAL (09/17/2024 11:13 AM CDT) PSA TOTAL 6.92(H) <4.00 ng/mL 09/17/2024 11:09 PM CDT [facility] Blood BLOOD SPECIMEN / Unknown Venipuncture / Unknown 09/17/2024 11:13 AM CDT 09/17/2024 11:13 AM CDT Narrative [facility] - 09/17/2024 11:09 PM CDT The test method changed on 09/25/2022. If this test has been used for serial monitoring, rebaselining is recommended. Rebaselining consists of 2 measurements, collected 3-6 weeks apart. The [employer]ys total PSA assay is an electrochemiluminescence immunoassay ECLIA performed on the Akhil Herson e immunoassay analyzers. Values obtained with different assay methods may be different and cannot be used interchangeably. us Grecia Hampton MD CHEMISTRY Final Resu lt [facility] [address] [place] [address], [place] * (ABNORMAL) COMP METABOLIC PANEL (09/17/2024 11:13 AM CDT) SODIUM 143 136 - 145 mmol/L 09/17/2024 11:33 AM [facility] POTASSIUM 5.0 3.5 - 5.1 mmol/L 09/17/2024 11:33 AM [facility] CHLORIDE 108(H) 98 - 107 mmol/L 09/17/2024 11:33 AM [facility] CO2,TOTAL 24 22 - 29 mmol/L 09/17/2024 11:33 AM [facility] ANION GAP 11 5 - 18 09/17/2024 11:33 AM [facility] GLUCOSE 92 70 - 99 mg/dL 09/17/2024 11:33 AM [facility] CALCIUM 9.3 8.8 - 10.4 mg/dL 09/17/2024 11:33 AM [facility] Comment: Reference ranges for this test were updated on 02/04/2024 to reflect our healthy population more accurately. Reference range changes are not retroactively applied to results, but previous results using the same methodology can be interpreted in the context of the new reference range. BUN 45(H) 8 - 23 mg/dL 09/17/2024 11:33 AM [facility] CREATININE 1.54(H) 0.70 - 1.20 mg/dL 09/17/2024 11:33 AM [facility] BUN/CREAT RATIO 29(H) 10 - 20 11:33 AM [facility] eGFR 43(L) >90 mL/min/1. 73m2 09/17/2024 11:33 AM [facility] Comment:As of 2021, eG FR is calculated by the CKD-EPI creatinine equation without race adjustment. eGFR can be influenced by muscle mass, exercise, and diet. The reported eGFR is an estimation only and is only applicable if the renal function is stable. ALBUMIN 4.2 4.0 - 4.9 g/dL 09/17/2024 11:33 AM [facility] PROTEIN,TOTAL 6.4 6.0 - 8.0 g/dL 09/17/2024 11:33 AM CDT [facility] [facility] BILIRUBIN,TOTAL 0.4 0.0 - 1.2 mg/dL 09/17/2024 11:33 AM CDT [facility] ALK PHOSPHATASE 74 40 - 129 IU/L 09/17/2024 11:33 AM CDT [facility] ALT (SGPT) 21 10 - 50 IU/L 09/17/2024 11:33 AM CDT [facility] AST (SGOT) 27 10 - 50 IU/L 09/17/2024 11:33 AM CDT [facility] Blood BLOOD SPECIMEN / Unknown Venipuncture / Unknown 09/17/2024 11:13 AM CDT 09/17/2024 11:13 AM CDT Grecia Hampton MD CHEMISTRY Final Resu lt [facility] [address] [place] [address] * CT CHEST WO (09/16/2024 10:22 AM CDT) Anatomical Region Laterality Modality CHEST, THORAX, HEART Computed To mography Hal Chen MD CT Final Re sult * MAGNESIUM (08/17/2024 12:51 PM CDT) MAGNESIUM 1.9 1.5 - 2.5 mg/dL [facility] Blood BLOOD SPECIMEN / Unknown 08/17/2024 12:51 PM CDT 08/17/2024 12:52 PM CDT us Louis Smith MD CHEMISTRY Final Resu lt [facility] [place] [facility] [address] [facility] [place] [address], [place] [phone] [facility] [address] [facility] [place] [address] * SCAN-OPERATIVE/PROCEDURE REPORT (07/22/2024 12:00 AM CDT) us Scanner OTHER Final Result * SCAN-OPERATIVE/PROCEDURE REPORT (07/09/2024 12:00 AM CDT) us Scanner OTHER Final Result from Last 3 Months Insurance MEDICARE PB ONLY MEDICARE PART B HB ONLY [employer] MEDICARE PART A HB ONLY Advance Directives * Full Code (Latest Code Status on File) Date Activated Date Inactivated Comments 07/30/2023 4:57 PM 07/31/2023 1:42 PM Question Answer Comments Code Status Discussion: Reviewed Preferences * Full Code Date Activated Date Inactivated Comments 10/04/2020 6:19 AM 10/06/2020 5:21 PM Question Answer Comments Code Status Discussion: Discussed * Full Code Date Activated Date Inactivated Comments 10/04/2020 6:19 AM 10/04/2020 6:19 AM Question Answer Comments Code Status Discussion: Discussed Care Teams Health Care Administrator Relationship Specialty Start Date End Date Louis Smith MD [address] [facility] [place] [address] PCP - General Family Practice 11/29/17 Grecia Hampton MD [address] [place] [address] Oncology Hematology and Oncology 10/15/19 Dania Ni, TEE [address] [place] [address] Oncology Nurse Practitioner - Family 10/15/19
--- OUTSIDE RECORDS SUMMARY | 2024-10-03 11:57 | XMS_ITS | Encounter Summary ---
Author Organization [facility] Address [address] [place] [address] Care Team Providers Care Banquet Set Up Person Name Role Phone Elsewhere, Pcp Primary Care Provider Unavailabl e Encounter Details Date Type Department Care Team (Late st Contact Info) Description 07/27/2024 Clinical Communication Department of Radiation Oncology in [place], [place] [address] [place] [phone] Jairon Delarosa M.D. [address] [place] [address] Social History Tobacco Use Types Packs/Day Years Used Date Smoking Tobacco: Former Cigarettes Passive Smoke Exposure: Past Smokeless Tobacco: Never Alcohol Use Standard Drinks/Week Comments Never 0 (1 standard drink = 0.6 oz pur e alcohol) [facility] Utilities Answer Date Recorded In the past 12 months has [facility] [employer], gas, oil, or water [employer] threatened to shut off services in your [...] your living situation today? I have a [facility] place to live 09/02/2023 Education Answer [...] on filedocumented in this encounter Care Teams Banquet Set Up Person Relationship Specialty Start Date End Date Elsewhere, Pcp PCP - General Internal Medicine 01/14/24 documented as of this encounter
--- OUTSIDE RECORDS SUMMARY | 2024-10-03 11:57 | XMS_ITS | Encounter Summary ---
Author Organization [facility] Address [address] [place] [address] Care Team Providers Care Air Boatswain Name Role Phone Elsewhere, Pcp Primary Care Provider Unavailabl e Encounter Details Date Type Department Care Team (Late st Contact Info) Description 07/27/2024 Clinical Communication Department of Radiation Oncology in [place], [place] [address] [place] [phone] Jairon Delarosa M.D. [address] [place] [address] Social History Tobacco Use Types Packs/Day Years Used Date Smoking Tobacco: Former Cigarettes Passive Smoke Exposure: Past Smokeless Tobacco: Never Alcohol Use Standard Drinks/Week Comments Never 0 (1 standard drink = 0.6 oz pur e alcohol) [facility] Utilities Answer Date Recorded In the past 12 months has [facility] [employer], gas, oil, or water [employer] threatened to shut off services in your [...] your living situation today? I have a [facility] place to live 09/02/2023 Education Answer [...] on filedocumented in this encounter Care Teams Air Boatswain Relationship Specialty Start Date End Date Elsewhere, Pcp PCP - General Internal Medicine 01/14/24 documented as of this encounter
--- OUTSIDE RECORDS SUMMARY | 2024-10-03 11:57 | XMS_ITS ---
Author Organization [facility] Address [address] [place] [address] Care Team Providers Care Clinical Sociologist Name Role Phone Elsewhere, Pcp Primary Care Provider Unavailabl e Active Problems * This document contains information received from the source organization and may not represent a complete record from that organization. 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 Juliane Moore. Gastroesophageal Reflux Disease NOS 08/01/2006 Overview (11/15/2021): refractory to H2 blockers Current Treatment and Therapy Plans No current plan information found. Past Treatment and Therapy Plans No past plan information found. Past Radiation Episodes * SBRT: Right LungOverview* First Treatment Date Last Treatment Date Treatment Site Technique Goal Episode Provider 08/20/2022 08/24/2022 Right Lung SBRT Curative * Linked Problems Malignant Neoplasm Of Lung U pper Lobe Or Bronchus Right Treatment Courses* Course [id number] 08/20/2022 - 08/24/2022 Treatment Period Fraction Dose Fractions Total Dose Plans Planned [id number] 08/20/2022 - 08/24/2022 1,000 cGy 5 ,000 cGy Reference Points Delivered [id number] 08/20/2022 - 08/24/2022 5,000 cGy Resolved Problems Problem Noted Date Diagnosed Date Resolved Date Congestive Heart Failure Eje ction Fraction Less Than 35 Percent And [place] [employer] Class 2-3 02/10/2024 06/05/2024
[2024-10-03 13:41] LABS: Appearance Urine Clear (Clear)
== END 2024-10-03 14:41 | disposition home or self-care (01) ==
PROVIDERS: Emergency Provider Family Medicine; PCP Family Medicine
DX: N39.0 Urinary tract infection, site not specified (principal)
CPT/HCPCS: 51798; 81001; 87086; 99283; 99284; A9270

== ENCOUNTER 2024-11-11 20:15 | Outpatient (CLI) | payer MEDICARE, OTHER, SELFPAY | END 2024-11-11 20:16 | disposition home or self-care (01) | LOC: AMB 11-12 15:51 | PROVIDERS: PCP Family Medicine; Visit Provider Family Medicine | DX: T17.928A Food in respiratory tract, part unspecified causing other injury, initial encounter (principal) | CPT/HCPCS: A0998 ==